=== PATIENT | female | born 1985 | race Caucasian/White ===

== ENCOUNTER → 2020-12-14 08:55 | Outpatient (BNVA) | payer OTHER, SELFPAY | PROVIDERS: Visit Provider Internal Medicine Rheumatology | DX: M05.79 Rheumatoid arthritis with rheumatoid factor of multiple sites without organ or systems involvement (principal); Z79.899 Other long term (current) drug therapy; M79.7 Fibromyalgia; Z11.1 Encounter for screening for respiratory tuberculosis; Z87.891 Personal history of nicotine dependence | CPT/HCPCS: 99214 ==

== ENCOUNTER 2020-12-14 10:25 | Outpatient (CLI) | payer OTHER, SELFPAY ==
[2020-12-14 11:20] LABS: Basophils % 0.2 %; Eosinophils # 0.1 10^3/uL (0.0-0.8); Eosinophils % 0.3 %; Hemoglobin 14.5 g/dL (11.5-15.3); Lymphocytes # 3.1 10^3/uL (0.8-4.8); Lymphocytes % 21.4 %; Mean Corpuscular HGB Conc 32.2 g/dL (30.0-36.0); Mean Corpuscular Hemoglobin 28.7 pg (28.0-34.0); Mean Corpuscular Volume 89.1 fL (81-99); Mean Platelet Volume 9.6 fL (7.4-10.4); Monocytes # 1.3 10^3/uL (0.2-0.9); Monocytes % 9.1 %; Neutrophils # 9.89 10^3/uL (1.8-7.7); Neutrophils % 68.5 %; Nucleated Red Blood Cells % 0 %; Platelet Count 335 10^3/cmm (130-400); Red Blood Count 5.05 10^6/uL (4.1-5.3); Red Cell Distribution Width 14.6 % (12.1-15.1); White Blood Count 14.4 10^3/uL (4.0-10.0)
[2020-12-14 11:41] LABS: Alanine Aminotransferase 7 U/L (0-33); Albumin Level 3.6 g/dL (3.5-5.2); Alkaline Phosphatase 87 IU/L (35-105); Aspartate Amino Transferase 9 U/L (0-32); C Reactive Protein 6.8 mg/L (0.0-4.9); Globulin 3.5 g/dL (1.3-4.6); Glomerular Filtration Rate 82.1 mL/min (90-130); Total Bilirubin 0.4 mg/dL (0.15-1.2); Total Protein 7.1 g/dL (6.6-8.7)
[2020-12-16 12:33] LABS: Quantiferon Nil 0.02 IU/mL; Quantiferon Plus TB2 <0.00 IU/mL; Quantiferon TB Gold NEGATIVE (NEGATIVE)
== END 2020-12-14 10:26 | disposition home or self-care (01) ==
LOC: LAB 10:27
PROVIDERS: Visit Provider Internal Medicine Rheumatology
DX: M06.9 Rheumatoid arthritis, unspecified (principal); Z79.899 Other long term (current) drug therapy; Z11.1 Encounter for screening for respiratory tuberculosis
CPT/HCPCS: 36415; 80076; 82565; 85025; 86140; 86480

== ENCOUNTER 2021-01-05 15:19 | Outpatient (CLI) | payer OTHER, SELFPAY ==
[2021-01-05 16:20] VITALS: BP 120/78; BP 135/97; PULSE 69; PULSE 70; RESP 16; TEMP 36.6; O2SAT 100; O2SAT 99
[2021-01-05] MEDS: acetaminophen 325 mg Tablet 650 MG PO (16:20)
[2021-01-05] MEDS: sodium chloride 0.9% 250 ML 30 ML IV (16:24)
[2021-01-05] MEDS: sodium chloride 0.9% (100 ml) 100 ML 400 ML (16:30)
[2021-01-05] MEDS: diphenhydrAMINE 50 mg/mL SDV 1mL 25 MG IVP (16:30)
== END 2021-01-05 15:20 | disposition home or self-care (01) ==
LOC: ONCMED 15:21
PROVIDERS: Visit Provider Internal Medicine Rheumatology
DX: M05.79 Rheumatoid arthritis with rheumatoid factor of multiple sites without organ or systems involvement (principal)
CPT/HCPCS: 96365; 96375; J1200; J1602; J2920; J7050

== ENCOUNTER 2021-02-02 15:29 | Outpatient (CLI) | payer OTHER, SELFPAY ==
[2021-02-02] MEDS: sodium chloride 0.9% 250 ML 30 ML IV (16:00)
[2021-02-02] MEDS: acetaminophen 325 mg Tablet 650 MG PO (16:00)
[2021-02-02] MEDS: diphenhydrAMINE 50 mg/mL SDV 1mL 25 MG IVP (16:02)
[2021-02-02 16:42] LABS: Basophils # 0.1 10^3/uL (0.0-0.1); Basophils % 0.4 %; Eosinophils # 0.1 10^3/uL (0.0-0.8); Hematocrit 41.6 % (37.0-47.0); Hemoglobin 13.4 g/dL (11.5-15.3); Lymphocytes # 4.3 10^3/uL (0.8-4.8); Lymphocytes % 30.8 %; Mean Corpuscular HGB Conc 32.2 g/dL (30.0-36.0); Mean Corpuscular Hemoglobin 29.1 pg (28.0-34.0); Mean Corpuscular Volume 90.4 fL (81-99); Mean Platelet Volume 9.7 fL (7.4-10.4); Monocytes # 1.1 10^3/uL (0.2-0.9); Monocytes % 7.6 %; Neutrophils # 8.37 10^3/uL (1.8-7.7); Neutrophils % 59.8 %; Nucleated Red Blood Cells % 0 %; Platelet Count 315 10^3/cmm (130-400); Red Cell Distribution Width 14.3 % (12.1-15.1)
[2021-02-02 17:46] LABS: Alanine Aminotransferase 10 U/L (0-33); Albumin Level 3.6 g/dL (3.5-5.2); Alkaline Phosphatase 87 IU/L (35-105); Aspartate Amino Transferase 9 U/L (0-32); Globulin 2.7 g/dL (1.3-4.6); Glomerular Filtration Rate 71.3 mL/min (90-130); Total Bilirubin 0.3 mg/dL (0.15-1.2); Total Protein 6.3 g/dL (6.6-8.7)
--- NOTE | 2021-03-15 08:12 | PC.NURSE ---
This patient had a visit on 01/05/21 for a Simponi infusion. The infusion was initiated at 1630 and completed at 1700. riltr
== END 2021-02-02 15:30 | disposition home or self-care (01) ==
PROVIDERS: Visit Provider Internal Medicine Rheumatology
DX: M05.79 Rheumatoid arthritis with rheumatoid factor of multiple sites without organ or systems involvement (principal)
CPT/HCPCS: 80076; 82565; 85025; 96365; 96375; J1200; J1602; J2920; J7050

== ENCOUNTER 2021-03-30 13:57 | Outpatient (CLI) | payer OTHER, SELFPAY ==
[2021-03-30] MEDS: acetaminophen 325 mg Tablet 650 MG PO (14:55)
[2021-03-30] MEDS: diphenhydrAMINE 50 mg/mL SDV 1mL 25 MG IVP (14:58)
[2021-03-30 15:02] LABS: Basophils # 0.1 10^3/uL (0.0-0.1); Basophils % 0.3 %; Eosinophils # 0.1 10^3/uL (0.0-0.8); Eosinophils % 0.5 %; Hematocrit 43.6 % (37.0-47.0); Hemoglobin 14.1 g/dL (11.5-15.3); Lymphocytes # 3.3 10^3/uL (0.8-4.8); Lymphocytes % 22.4 %; Mean Corpuscular HGB Conc 32.3 g/dL (30.0-36.0); Mean Corpuscular Hemoglobin 29.1 pg (28.0-34.0); Mean Corpuscular Volume 89.9 fL (81-99); Mean Platelet Volume 9.6 fL (7.4-10.4); Monocytes # 1.5 10^3/uL (0.2-0.9); Monocytes % 9.8 %; Neutrophils # 9.84 10^3/uL (1.8-7.7); Neutrophils % 66.6 %; Nucleated Red Blood Cells % 0 %; Platelet Count 328 10^3/cmm (130-400); Red Blood Count 4.85 10^6/uL (4.1-5.3); Red Cell Distribution Width 13.2 % (12.1-15.1); White Blood Count 14.8 10^3/uL (4.0-10.0)
[2021-03-30 15:43] LABS: Alanine Aminotransferase 7 U/L (0-33); Albumin Level 3.5 g/dL (3.5-5.2); Alkaline Phosphatase 84 IU/L (35-105); Aspartate Amino Transferase 9 U/L (0-32); Globulin 2.8 g/dL (1.3-4.6); Glomerular Filtration Rate 63.1 mL/min (90-130); Total Bilirubin 0.2 mg/dL (0.15-1.2); Total Protein 6.3 g/dL (6.6-8.7)
[2021-03-30 15:55] VITALS: BP 142/90; PULSE 85; RESP 18; TEMP 36.9; O2SAT 99
== END 2021-03-30 13:58 | disposition home or self-care (01) ==
PROVIDERS: Referring Provider Internal Medicine Rheumatology; Visit Provider Internal Medicine Rheumatology
DX: M05.79 Rheumatoid arthritis with rheumatoid factor of multiple sites without organ or systems involvement (principal)
CPT/HCPCS: 36415; 80076; 82565; 85025; 96365; 96375; J1200; J1602; J2920

== ENCOUNTER 2021-04-01 09:32 | Emergency (ER) | payer OTHER, SELFPAY ==
[2021-04-01 10:00] VITALS: BP 191/121; PULSE 72; RESP 15; TEMP 36.7; O2SAT 97; BMI 40.3
--- NOTE | 2021-04-01 10:28 | ECG_ITS ---
[facility] Test Date: 2021-04-01 Pat Name: Andie Joyce Department: Room: Gender: Female Appointment Coordinator: : 1985 Requested By: Merari Shepherd Order Number: [id number] Josef MD: Jose Carlos Garcia M.D. Measurements Intervals [place] Rate: 71 P: 56 MN: 133 QRS: 45 QRSD: 87 T: 6 QT: 387 QTc: 421 Interpretive Statements SINUS RHYTHM No previous ECG available for comparison Electronically Signed On 04-01-2021 20:29:50 CDT by Jose Carlos Garcia M.D. [id number] f
--- NOTE | 2021-04-01 10:28 | XR_ITS ---
WS: [id number] Portable AP upright chest, 04/01/2021 Clinical Data: chest pain Comparison: None. Findings: No nodules, masses or effusions are seen. The heart is normal. The pulmonary vascularity is not increased. No pneumonia or pneumothorax is seen. There are decorative items overlying the patien t's breasts. XR/XR chest 1V portable [id number] Impression: Negative chest.
--- NOTE | 2021-04-01 11:25 | CT_ITS ---
WS: [id number] CT HEAD TECHNIQUE: Noncontrast CT of the head obtained from the skullbase to the vertex. CLINICAL INFORMATION: dizzy; htn; shield abd; lmp 2 days ago COMPARISON: None. DLP: 886.[address] scans at [facility] use at least one of these dose optimization techniques: automat ed exposure control; mA and/or kV adjustment per patient size (includes targeted exams where dose is matched to clinical indication); or iterative reconstruction. FINDINGS: No evidence of intracranial hemorrhage or mass effect. Ventricular system and basal cisterns are hogan nt. No extra-axial fluid collections. No evidence of mass or mass effect. Normal burrell-white different iation. Incidental slightly low-lying cerebral tonsils. No hydrocephalus. Normal fourth ventricle. Paranasal sinuses and mastoid air cells are well aerated. .Normal visualized soft tissues. CT/CT head wo con* [id number] IMPRESSION: 1. No evidence of intracranial hemorrhage or mass effect. 2. Normal burrell-white differentiation. 3. Incidental cerebellar tonsillar ectopia. No hydrocephalus. Normal fourth ve ntricle. 4. No acute intracranial findings.
--- NOTE | 2021-04-01 11:26 | W.ED.DIZZY ---
HPI - Dizziness General: Chief Complaint: Dizziness Stated Complaint: High bp, Lightheaded, Nausea, tightness in chest Time Seen by Provider: 04/01/21 10:58 Source: patient Mode of arrival: ambulatory Limitations: no limitations History of Present Illness: HPI Narrative: Patient reportedly started having nausea yesterday with associated lightheadedness and chest tightness after autoimmune infusion on Monday for rheumatoid arthritis. She states this was her third infusion but first time she has had reaction to the infusion. She states she does occasionally get spikes in her blood pressure when she has a flare of her rheumatoid arthritis. She states she is on chronic prednisone and has been for approximately 7 years. She is presently not on any antihypertensive medications. She states she became hypotensive when taking lisinopril when she had a previous spike of hypertension. MD elicited complaint: dizziness, lightheadedness and disequilibrium Pertinent past history: other (Chronic prednisone use, rheumatoid arthritis) Timing: gradual onset Description: lightheadedness and off-balance Context: change in medication History of similar symptoms: Yes Exacerbating factors: other (Recent rheumatoid arthritis and fusion) Relieving factors: nothing Associated symptoms: Reports chest pain and nausea; Denies chills, headache(s), palpitations or vomiting Associated neuro symptoms: Deny confusion, difficulty speaking, dysphagia, diplopia, extremity weakness, facial numbness, facial weakness, gait changes, numbness in extremities or visual changes Review of Systems Const: Denies: fever(s) or chills Eyes: Denies: change in vision or blurry vision ENMT: Denies: throat pain Card: Reports: chest pain; Denies: palpitations Resp: Denies: dyspnea or wheezing GI: Reports: nausea; Denies: abdominal pain, vomiting or dysphagia : Denies: flank pain Musc: Denies: neck pain or back pain Skin/Breast: Denies: rash or pruritus Neuro: Reports: dizziness; Denies: headache(s), numbness in extremities or confusion Psych: Denies: anxiety Fritz/Lymph: Denies: enlarged lymph nodes PFSH ED PFSH: Medical History Chronic steroid use Depression with anxiety Endometriosis Fibromyalgia High risk medication use Hypertension Immunization counseling Joint pain Positive anti-CCP test Rheumatoid arthritis Seropositive rheumatoid arthritis of multiple sites Surgical History History of hand surgery Family History Other Cancer Chronic kidney disease (CKD) Diabetes Hypertension Lupus Rheumatoid arthritis Stroke Social History Smoking and tobacco status: former smoker Alcohol intake: current History of recent travel: No Female Reproductive History: Date of last menstrual period: 02/22/21 Physical Exam Const: COMMON NORMALS: no acute distress, patient oriented x3, no limitations and well nourished GENERAL APPEARANCE: cooperative HENMT: COMMON NORMALS: normocephalic, atraumatic, external ears normal, EAC's normal, TM's normal bilaterally and Normal external nose present HEAD & SCALP: normocephalic and atraumatic FACE & SINUS: normal facial exam NOSE: Normal external nose present EXTERNAL EAR: Yes external ears normal EXTERNAL AUDITORY CANAL: EAC's normal TYMPANIC MEMBRANE: TM's normal bilaterally MOUTH: Normal oral and palatal mucosa present Eye: COMMON NORMALS: EOMs intact bilaterally Neck/C-Spine: COMMON NORMALS: full ROM, no lymphadenopathy, supple and no meningeal signs GENERAL: Yes normal visual inspection Lymph: LYMPHATIC: no lymphadenopathy noted Chest: COMMONS NORMALS: normal inspection of the chest and normal palpation of entire chest wall CHEST: No Ecchymosis present and No rash Resp: COMMON NORMALS: normal respiratory effort, No retractions and clear to auscultation bilaterally EFFORT & INSPECTION: No respiratory distress AUSCULTATION: clear to auscultation bilaterally Cardio: COMMON NORMALS: regular rate, regular rhythm and Peripheral pulses 2+ throughout JUGULAR VENOUS DISTENTION: no JVD RATE: regular rate RHYTHM: regular rhythm PERIPHERAL PULSES: Peripheral pulses 2+ throughout GI: COMMON NORMALS: Normal to inspection, nondistended, normoactive bowel sounds present, non-tender and no masses (Obese) : COMMON NORMALS: Yes no CVA tenderness BLADDER/KIDNEY EXAM: Yes no CVA tenderness Back/Pelvis: COMMON NORMALS: no CVA tenderness Extremity: COMMON NORMALS: normal to inspection, full ROM and capillary refill normal Neuro: COMMON NORMALS: patient oriented x3, CN's II-XII intact bilaterally, no focal motor deficits, no sensory deficits noted and deep tendon reflexes 2+ bilaterally MENINGEAL SIGNS: Yes no meningeal signs Psych: COMMON NORMALS: mental status grossly normal and Normal thought process present THOUGHT PROCESS: Normal thought process present Skin: COMMON NORMALS: no rashes or lesions noted and no wounds GENERAL SKIN EXAM: no rashes or lesions noted Course Vital Signs: Vital signs: Vital Signs Temperature 98.0 F 04/01/21 10:00 Pulse Rate 84 04/01/21 13:57 Respiratory Rate 18 04/01/21 13:57 Blood Pressure 153/111 04/01/21 13:57 Pulse Oximetry 98 04/01/21 13:57 MDM - Dizziness Lab Data: Labs: Lab Results 04/01/21 04/01/21 04/01/21 Range/Units 11:38 11:38 11:38 WBC 11.6 H (4.0-10.0) 10^3/ uL RBC 4.97 (4.1-5.3) 10^6/u L Hgb 14.2 (11.5-15.3) g/dL Hct 44.6 (37.0-47.0) % MCV 89.7 (81-99) fL MCH 28.6 (28.0-34.0) pg MCHC 31.8 (30.0-36.0) g/dL RDW 13.2 (12.1-15.1) % Plt Count 301 (130-400) 10^3/c mm MPV 9.6 (7.4-10.4) fL Neut % (Auto) 55.3 % Lymph % (Auto) 35.2 % Bland % (Auto) 7.8 % Eos % (Auto) 1.0 % Baso % (Auto) 0.4 % Neut # (Auto) 6.40 (1.8-7.7) 10^3/u L Lymph # (Auto) 4.1 (0.8-4.8) 10^3/u L Bland # (Auto) 0.9 (0.2-0.9) 10^3/u L Eos # (Auto) 0.1 (0.0-0.8) 10^3/u L Baso # (Auto) 0.1 (0.0-0.1) 10^3/u L Nucleated RBC % (a uto) 0 % Nucleated RBCs # 0.0 /100WBC Sodium 141 (136-145) mmol/L Potassium 4.0 (3.5-5.1) mmol/L Chloride 101 (98-107) mmol/L Carbon Dioxide 29 (22-29) mmol/L Anion Gap 15.0 (5-19) BUN 14 (6-20) mg/dL Creatinine 0.9 (0.5-0.9) mg/dL GFR Calculation 71.3 L (90-130) mL/min Glucose 78 (65-115) mg/dL Calculated Osmolal ity 291 (285-295) mOsm/k g Calcium 8.4 L (8.5-10.5) mg/dL Total Bilirubin 0.4 (0.15-1.2) mg/dL AST 10 (0-32) U/L ALT 8 (0-33) U/L Alkaline Phosphata se 79 (35-105) IU/L Troponin T Baselin e 6 (0-10) ng/L Total Protein 6.1 L (6.6-8.7) g/dL Albumin 3.6 (3.5-5.2) g/dL Globulin 2.5 (1.3-4.6) g/dL TSH 1.69 (0.27-4.20) uIU/ mL HCG, Qual (Negative) Urine Color (Yellow) Urine Appearance (CLEAR) Urine pH (5-7) Ur Specific Gravit y (1.005-1.030) Urine Protein (Negative) Urine Glucose (UA) (Normal) Urine Ketones (Negative) Urine Blood (Negative) Urine Nitrate (Negative) Urine Bilirubin (Negative) Urine Urobilinogen (Negative) mg/dL Ur Leukocyte Whitney ase (Negative) 04/01/21 04/01/21 Range/Units 11:38 13:05 WBC (4.0-10.0) 10^3/ uL RBC (4.1-5.3) 10^6/u L Hgb (11.5-15.3) g/dL Hct (37.0-47.0) % MCV (81-99) fL MCH (28.0-34.0) pg MCHC (30.0-36.0) g/dL RDW (12.1-15.1) % Plt Count (130-400) 10^3/c mm MPV (7.4-10.4) fL Neut % (Auto) % Lymph % (Auto) % Bland % (Auto) % Eos % (Auto) % Baso % (Auto) % Neut # (Auto) (1.8-7.7) 10^3/u L Lymph # (Auto) (0.8-4.8) 10^3/u L Bland # (Auto) (0.2-0.9) 10^3/u L Eos # (Auto) (0.0-0.8) 10^3/u L Baso # (Auto) (0.0-0.1) 10^3/u L Nucleated RBC % (a uto) % Nucleated RBCs # /100WBC Sodium (136-145) mmol/L Potassium (3.5-5.1) mmol/L Chloride (98-107) mmol/L Carbon Dioxide (22-29) mmol/L Anion Gap (5-19) BUN (6-20) mg/dL Creatinine (0.5-0.9) mg/dL GFR Calculation (90-130) mL/min Glucose (65-115) mg/dL Calculated Osmolal ity (285-295) mOsm/k g Calcium (8.5-10.5) mg/dL Total Bilirubin (0.15-1.2) mg/dL AST (0-32) U/L ALT (0-33) U/L Alkaline Phosphata se (35-105) IU/L Troponin T Baselin e (0-10) ng/L Total Protein (6.6-8.7) g/dL Albumin (3.5-5.2) g/dL Globulin (1.3-4.6) g/dL TSH (0.27-4.20) uIU/ mL HCG, Qual Negative (Negative) Urine Color Yellow (Yellow) Urine Appearance Clear (CLEAR) Urine pH 6.5 (5-7) Ur Specific Gravit y 1.020 (1.005-1.030) Urine Protein Neg (Negative) Urine Glucose (UA) Norm (Normal) Urine Ketones Negative (Negative) Urine Blood Neg (Negative) Urine Nitrate Negative (Negative) Urine Bilirubin Neg (Negative) Urine Urobilinogen Norm (Negative) mg/dL Ur Leukocyte Whitney ase Negative (Negative) Imaging Data^: CT Head: Radiologist's impression: [place] [id number] [facility] [place], [place] [address]CZ Scan ReportSigned Patient: Armin Joyceit #: [id number]: 1985Acct#:[id number]/Sex: 36 / FADM Date: 04/01/21Loc: ERRoom/Bed:Attending Dr: Ordering Provider/Ordering MD: Smith Vogt MD Date of Service: 04/01/21 Procedure(s): CT head wo con* [id number] Accession Number(s): [id number] Report Number: [id number] WS: [id number] CT HEAD TECHNIQUE: Noncontrast CT of the head obtained from the skullbase to the vertex. CLINICAL INFORMATION: dizzy; htn; shield abd; lmp 2 days ago COMPARISON: None. DLP: 886.[address] scans at [facility] use at least one of these dose optimization techniques: automated exposure control; mA and/or kV adjustment per patient size (includes targeted exams where dose is matched to clinical indication); or iterative reconstruction. FINDINGS: No evidence of intracranial hemorrhage or mass effect. Ventricular system and basal cisterns are patent. No extra-axial fluid collections. No evidence of mass or mass effect. Normal burrell-white differentiation. Incidental slightly low-lying cerebral tonsils. No hydrocephalus. Normal fourth ventricle. Paranasal sinuses and mastoid air cells are well aerated. .Normal visualized soft tissues. CT/CT head wo con* [id number] IMPRESSION: 1. No evidence of intracranial hemorrhage or mass effect. 2. Normal burrell-white differentiation. 3. Incidental cerebellar tonsillar ectopia. No hydrocephalus. Normal fourth ventricle. 4. No acute intracranial findings. Dictated By:Yury Em MDSigned By:Yury Em MDSigned Date/Time:04/01/21 1220 CXR: Attestation: I personally reviewed and interpreted this imaging study as follows: My impression: negative chest Radiologist's impression: [address].[place], [place] [address]MMsf ReportSigned Patient: Leola Joyce #: [id number]: 1985Acct#:[id number]/Sex: 36 / FADM Date: 04/01/21Loc: ERRoom/Bed:Attending Dr: Ordering Provider/Ordering MD: Merari Shepherd Date of Service: 04/01/21 Procedure(s): XR chest 1V portable [id number] Accession Number(s): [id number] Report Number: [id number] WS: [id number] Portable AP upright chest, 04/01/2021 Clinical Data: chest pain Comparison: None. Findings: No nodules, masses or effusions are seen. The heart is normal. The pulmonary vascularity is not increased. No pneumonia or pneumothorax is seen. There are decorative items overlying the patient's breasts. XR/XR chest 1V portable [id number] Impression: Negative chest. Dictated By:Megan Mishra MDSigned By:Megan Mishra MDSigned Date/Time:04/01/21 1055 EKG Data^: EKG 1: EKG interpretation date: 04/01/21 EKG interpretation time: 10:10 Prior EKG tracings: not available for review Interpretation: Normal sinus rhythm with heart rate of 71. Normal P waves, normal T waves, normal axis. Normal QT interval. Normal QRS. Impression normal EKG. Discharge Plan Discharge Patient Disposition: Home Clinical Impression: Hypertensive urgency, Dizziness Condition: Stable Prescriptions: New losartan 50 mg tablet 50 mg PO DAILY Qty: 30 RF: 2 No Action ondansetron 4 mg tablet,disintegrating 4 mg PO Q6H RF: 0 gabapentin 100 mg capsule See Rx Instructions PO DAILY Qty: 60 RF: 2 ondansetron HCl 8 mg tablet 8 mg PO Q8H PRN (Reason: nausea and vomiting) Qty: 30 RF: 0 promethazine 12.5 mg tablet 12.5 mg PO Q6H PRN (Reason: nausea and vomiting) Qty: 60 RF: 1 prednisone 10 mg tablet 10 mg PO DAILY Qty: 90 RF: 1 omeprazole 40 mg capsule,delayed release(DR/EC) 40 mg PO DAILY Qty: 90 RF: 1 escitalopram oxalate 20 mg tablet 20 mg PO DAILY RF: 0 gabapentin 300 mg capsule 300 mg PO BEDTIME RF: 0 Discharge Orders: Discharge ED (Routine); Ordered 04/01/21 Ordered By: Smith Vogt Referrals: Isi Miller, RN [Primary Care Provider] - Discharge Diet: Low Salt Discharge Activity: Resume usual activity Patient Instructions: Heart Healthy Diet (ED), Low Sodium Diet (ED), Hypertension (ED), Dizziness (ED) Activity Restrictions/Additional Instructions: Avoid caffeine or any stimulants. Drink plenty of fluids but avoid added salt. Take losartan 50 mg daily to help control your blood pressure. If blood pressure improves you may cut the pill in half and take 25 mg daily for high blood pressure. Coding Level of Care Code ED Aircraft Mechanic Electrical And [employer] for Chg Fwd Exam Comprehensive
[2021-04-01] MEDS: meclizine 25 mg tablet PO (11:42)
[2021-04-01 11:44] LABS: Basophils # 0.1 10^3/uL (0.0-0.1); Basophils % 0.4 %; Eosinophils # 0.1 10^3/uL (0.0-0.8); Hematocrit 44.6 % (37.0-47.0); Hemoglobin 14.2 g/dL (11.5-15.3); Lymphocytes # 4.1 10^3/uL (0.8-4.8); Lymphocytes % 35.2 %; Mean Corpuscular HGB Conc 31.8 g/dL (30.0-36.0); Mean Corpuscular Hemoglobin 28.6 pg (28.0-34.0); Mean Corpuscular Volume 89.7 fL (81-99); Mean Platelet Volume 9.6 fL (7.4-10.4); Monocytes # 0.9 10^3/uL (0.2-0.9); Monocytes % 7.8 %; Neutrophils % 55.3 %; Nucleated Red Blood Cells % 0 %; Platelet Count 301 10^3/cmm (130-400); Red Blood Count 4.97 10^6/uL (4.1-5.3); Red Cell Distribution Width 13.2 % (12.1-15.1); White Blood Count 11.6 10^3/uL (4.0-10.0)
[2021-04-01 11:47] VITALS: BP 194/147; PULSE 61; O2SAT 99
[2021-04-01 11:52] LABS: HCG, Serum Qual Negative (Negative)
[2021-04-01] MEDS: hyDRALAzine 20 mg/mL INJ 1 mL 10 MG IVP (11:53)
[2021-04-01 12:14] LABS: Troponin(5th) Baseline 6 ng/L (0-10)
[2021-04-01 12:21] LABS: Alanine Aminotransferase 8 U/L (0-33); Albumin Level 3.6 g/dL (3.5-5.2); Alkaline Phosphatase 79 IU/L (35-105); Aspartate Amino Transferase 10 U/L (0-32); Blood Urea Nitrogen 14 mg/dL (6-20); Calcium 8.4 mg/dL (8.5-10.5); Carbon Dioxide 29 mmol/L (22-29); Chloride 101 mmol/L (98-107); Globulin 2.5 g/dL (1.3-4.6); Glomerular Filtration Rate 71.3 mL/min (90-130); Glucose 78 mg/dL (65-115); Osmolality Calculated 291 mOsm/kg (285-295); Sodium 141 mmol/L (136-145); Thyroid Stimulating Hormone 1.69 uIU/mL (0.27-4.20); Total Bilirubin 0.4 mg/dL (0.15-1.2); Total Protein 6.1 g/dL (6.6-8.7)
--- NOTE | 2021-04-01 12:28 | ECG_ITS ---
[facility] Test Date: 2021-04-01 Pat Name: Andie Joyce Department: Room: Gender: Female Needle Leader: : 1985 Requested By: Merari Shepherd Order Number: [id number] Josef MD: Jose Carlos Garcia M.D. Measurements Intervals [place] Rate: 54 P: 55 LA: 147 QRS: 42 QRSD: 86 T: 24 QT: 445 QTc: 425 Interpretive Statements SINUS BRADYCARDIA Compared to ECG 04/01/2021 10:07:25 Sinus rhythm no longer present Electronically Signed On 04-01-2021 20:37:59 CDT by Jose Carlos Garcia M.D. [email or web address] health willard [id number] f
--- NOTE | 2021-04-01 12:56 | PC.PHAR ---
PT STATES SHE TAKES AN INFUSION OF SYMPONIA ARIA (SP), THAT RUNS AT 30-45 MINUTES. SHE IS CHANGING TO ACETRANA (SP) STARTING IN 4 WEEKS. THE PT TOLD ME THIS, THERE WAS NO DOCUMENTATION FOR IT.
[2021-04-01 13:11] VITALS: BP 148/92; PULSE 64; RESP 18; O2SAT 96
[2021-04-01 13:15] LABS: Add Urine Microscopic? NO; Charge for UA Resulting for Rev
[2021-04-01 13:28] LABS: Glucose Urine UA Norm (Normal); Ketones Urine Negative (Negative); Protein Urine Neg (Negative); Urine Appearance Clear (CLEAR); Urine Color Yellow (Yellow); pH Urine 6.5 (5-7)
[2021-04-01 13:29] LABS: Bilirubin Urine Neg (Negative); Blood Urine Neg (Negative); Leukocyte Esterase Urine Negative (Negative); Nitrate Urine Negative (Negative); Urobilinogen Urine Norm (Negative)
[2021-04-01] MEDS: acetaminophen 500 mg Tablet 1000 MG PO (13:56)
[2021-04-01] MEDS: hyDRALAzine 20 mg/mL INJ 1 mL 5 MG IVP (13:56)
[2021-04-01 13:57] VITALS: BP 153/111; PULSE 84; RESP 18; O2SAT 98
[2021-04-01 14:26] VITALS: BP 145/102; PULSE 84; RESP 16
--- NOTE | 2021-04-01 14:39 | ED_ITS ---
HPI - Dizziness General: Chief Complaint: Dizziness Stated Complaint: High bp, Lightheaded, Nausea, tightness in chest Time Seen by Provider: 04/01/21 10:58 Source: patient Mode of arrival: ambulatory Limitations: no limitations History of Present Illness: Exacerbating factors: other (Recent rheumatoid arthritis and fusion) Relieving factors: nothing PFSH ED PFSH: Medical History Chronic steroid use Depression with anxiety Endometriosis Fibromyalgia High risk medication use Hypertension Immunization counseling Joint pain Positive anti-CCP test Rheumatoid arthritis Seropositive rheumatoid arthritis of multiple sites Surgical History History of hand surgery Family History Other Cancer Chronic kidney disease (CKD) Diabetes Hypertension Lupus Rheumatoid arthritis Stroke Social History Smoking and tobacco status: former smoker Alcohol intake: current History of recent travel: No Female Reproductive History: Date of last menstrual period: 02/22/21 Course Vital Signs: Vital signs: Vital Signs Temperature 98.0 F 04/01/21 10:00 Pulse Rate 84 04/01/21 14:26 Respiratory Rate 16 04/01/21 14:26 Blood Pressure 145/102 04/01/21 14:26 Pulse Oximetry 98 04/01/21 13:57 MDM - Dizziness Lab Data: Labs: Lab Results 04/01/21 04/01/21 04/01/21 Range/Units 11:38 11:38 11:38 WBC 11.6 H (4.0-10.0) 10^3/ uL RBC 4.97 (4.1-5.3) 10^6/u L Hgb 14.2 (11.5-15.3) g/dL Hct 44.6 (37.0-47.0) % MCV 89.7 (81-99) fL MCH 28.6 (28.0-34.0) pg MCHC 31.8 (30.0-36.0) g/dL RDW 13.2 (12.1-15.1) % Plt Count 301 (130-400) 10^3/c mm MPV 9.6 (7.4-10.4) fL Neut % (Auto) 55.3 % Lymph % (Auto) 35.2 % Elbert % (Auto) 7.8 % Eos % (Auto) 1.0 % Baso % (Auto) 0.4 % Neut # (Auto) 6.40 (1.8-7.7) 10^3/u L Lymph # (Auto) 4.1 (0.8-4.8) 10^3/u L Elbert # (Auto) 0.9 (0.2-0.9) 10^3/u L Eos # (Auto) 0.1 (0.0-0.8) 10^3/u L Baso # (Auto) 0.1 (0.0-0.1) 10^3/u L Nucleated RBC % (a uto) 0 % Nucleated RBCs # 0.0 /100WBC Sodium 141 (136-145) mmol/L Potassium 4.0 (3.5-5.1) mmol/L Chloride 101 (98-107) mmol/L Carbon Dioxide 29 (22-29) mmol/L Anion Gap 15.0 (5-19) BUN 14 (6-20) mg/dL Creatinine 0.9 (0.5-0.9) mg/dL GFR Calculation 71.3 L (90-130) mL/min Glucose 78 (65-115) mg/dL Calculated Osmolal ity 291 (285-295) mOsm/k g Calcium 8.4 L (8.5-10.5) mg/dL Total Bilirubin 0.4 (0.15-1.2) mg/dL AST 10 (0-32) U/L ALT 8 (0-33) U/L Alkaline Phosphata se 79 (35-105) IU/L Troponin T Baselin e 6 (0-10) ng/L Total Protein 6.1 L (6.6-8.7) g/dL Albumin 3.6 (3.5-5.2) g/dL Globulin 2.5 (1.3-4.6) g/dL TSH 1.69 (0.27-4.20) uIU/ mL HCG, Qual (Negative) Urine Color (Yellow) Urine Appearance (CLEAR) Urine pH (5-7) Ur Specific Gravit y (1.005-1.030) Urine Protein (Negative) Urine Glucose (UA) (Normal) Urine Ketones (Negative) Urine Blood (Negative) Urine Nitrate (Negative) Urine Bilirubin (Negative) Urine Urobilinogen (Negative) mg/dL Ur Leukocyte Whtiney ase (Negative) 04/01/21 04/01/21 Range/Units 11:38 13:05 WBC (4.0-10.0) 10^3/ uL RBC (4.1-5.3) 10^6/u L Hgb (11.5-15.3) g/dL Hct (37.0-47.0) % MCV (81-99) fL MCH (28.0-34.0) pg MCHC (30.0-36.0) g/dL RDW (12.1-15.1) % Plt Count (130-400) 10^3/c mm MPV (7.4-10.4) fL Neut % (Auto) % Lymph % (Auto) % Elbert % (Auto) % Eos % (Auto) % Baso % (Auto) % Neut # (Auto) (1.8-7.7) 10^3/u L Lymph # (Auto) (0.8-4.8) 10^3/u L Elbert # (Auto) (0.2-0.9) 10^3/u L Eos # (Auto) (0.0-0.8) 10^3/u L Baso # (Auto) (0.0-0.1) 10^3/u L Nucleated RBC % (a uto) % Nucleated RBCs # /100WBC Sodium (136-145) mmol/L Potassium (3.5-5.1) mmol/L Chloride (98-107) mmol/L Carbon Dioxide (22-29) mmol/L Anion Gap (5-19) BUN (6-20) mg/dL Creatinine (0.5-0.9) mg/dL GFR Calculation (90-130) mL/min Glucose (65-115) mg/dL Calculated Osmolal ity (285-295) mOsm/k g Calcium (8.5-10.5) mg/dL Total Bilirubin (0.15-1.2) mg/dL AST (0-32) U/L ALT (0-33) U/L Alkaline Phosphata se (35-105) IU/L Troponin T Baselin e (0-10) ng/L Total Protein (6.6-8.7) g/dL Albumin (3.5-5.2) g/dL Globulin (1.3-4.6) g/dL TSH (0.27-4.20) uIU/ mL HCG, Qual Negative (Negative) Urine Color Yellow (Yellow) Urine Appearance Clear (CLEAR) Urine pH 6.5 (5-7) Ur Specific Gravit y 1.020 (1.005-1.030) Urine Protein Neg (Negative) Urine Glucose (UA) Norm (Normal) Urine Ketones Negative (Negative) Urine Blood Neg (Negative) Urine Nitrate Negative (Negative) Urine Bilirubin Neg (Negative) Urine Urobilinogen Norm (Negative) mg/dL Ur Leukocyte Whitney ase Negative (Negative) EKG Data^: EKG 2: Attestation: I personally reviewed and interpreted this EKG as follows: EKG interpretation date: 04/01/21 EKG interpretation time: 12:40 Interpretation: EKG #2 showed sinus bradycardia with heart rate of 54. Normal EKG otherwise. Normal P wave, normal T wave, normal QRS. Normal ST segment. Normal axis. Essentially unchanged from previous EKG. Impression normal EKG except for sinus bradycardia. Discharge Plan Discharge Patient Disposition: Home Clinical Impression: Hypertensive urgency, Dizziness Condition: Stable Prescriptions: New losartan 50 mg tablet 50 mg PO DAILY Qty: 30 RF: 2 No Action ondansetron 4 mg tablet,disintegrating 4 mg PO Q6H RF: 0 gabapentin 100 mg capsule See Rx Instructions PO DAILY Qty: 60 RF: 2 ondansetron HCl 8 mg tablet 8 mg PO Q8H PRN (Reason: nausea and vomiting) Qty: 30 RF: 0 promethazine 12.5 mg tablet 12.5 mg PO Q6H PRN (Reason: nausea and vomiting) Qty: 60 RF: 1 prednisone 10 mg tablet 10 mg PO DAILY Qty: 90 RF: 1 omeprazole 40 mg capsule,delayed release(DR/EC) 40 mg PO DAILY Qty: 90 RF: 1 escitalopram oxalate 20 mg tablet 20 mg PO DAILY RF: 0 gabapentin 300 mg capsule 300 mg PO BEDTIME RF: 0 Discharge Orders: Discharge ED (Routine); Ordered 04/01/21 Ordered By: Smith Vogt Referrals: Paul,Isi, RN [Primary Care Provider] - Discharge Diet: Low Salt Discharge Activity: Resume usual activity Patient Instructions: Heart Healthy Diet (ED), Low Sodium Diet (ED), Hypertension (ED), Dizziness (ED) Activity Restrictions/Additional Instructions: Avoid caffeine or any stimulants. Drink plenty of fluids but avoid added salt. Take losartan 50 mg daily to help control your blood pressure. If blood pressure improves you may cut the pill in half and take 25 mg daily for high blood pressure. Coding Level of Care Code ED Song Writer for Emmanule Jacobo
== END 2021-04-01 14:28 | disposition home or self-care (01) ==
PROVIDERS: Physician Assistant; Emergency Provider Family Medicine
DX: R42 Dizziness and giddiness (principal); I16.0 Hypertensive urgency; I10 Essential (primary) hypertension; Z87.891 Personal history of nicotine dependence
CPT/HCPCS: 70450; 71045; 80053; 81003; 84443; 84484; 84703; 85025; 93005; 96374; 96376; 99284; J0360; J8597

== ENCOUNTER → 2021-07-21 15:54 | Outpatient (BNVA) | payer OTHER, SELFPAY | PROVIDERS: Visit Provider Internal Medicine Rheumatology | DX: M05.79 Rheumatoid arthritis with rheumatoid factor of multiple sites without organ or systems involvement (principal); Z79.899 Other long term (current) drug therapy; Z79.52 Long term (current) use of systemic steroids; M79.7 Fibromyalgia; Z71.89 Other specified counseling; Z87.891 Personal history of nicotine dependence | CPT/HCPCS: 99214 ==

== ENCOUNTER 2021-09-14 13:22 | Outpatient (CLI) | payer OTHER, SELFPAY ==
--- NOTE | 2021-09-14 13:30 | XR_ITS ---
WS: [email or web address] HAND RIGHT TECHNIQUE: 3 views of the right hand CLINICAL INFORMATION: Z79.899 - Other [facility] (current) drug therapy COMPARISON: None. FINDINGS: Normal metacarpals. Normal MCP joint. Metacarpal heads are normal in appearance. Normal PIP and DIP j oints. No evidence of acute fracture or dislocation. No significant erosive changes. Radiocarpal joint: Mild narrowing Carpal bones: Normal. XR/XR hand RT min 3V* [id number] IMPRESSION: No significant erosive changes.
--- NOTE | 2021-09-14 13:30 | XR_ITS ---
WS: [email or web address] FOOT LEFT TECHNIQUE: 3 views of the left foot CLINICAL INFORMATION: Z79.899 - Other snf (current) drug therapy COMPARISON: None. FINDINGS: No evidence of acute fracture or dislocation. Normal tarsal metatarsal alignment. Normal calcaneus. N ormal visualized talar dome. Moderate diffuse soft tissue edema lower leg and hindfoot. Normal tarsal metatarsal alignment. No significant periarticular erosions. XR/XR foot LT min 3V* [id number] IMPRESSION: No significant erosive changes.
--- NOTE | 2021-09-14 13:30 | XR_ITS ---
WS: [email or web address] HAND LEFT TECHNIQUE: 3 views of the left hand CLINICAL INFORMATION: Z79.899 - Other watermelon inspector (current) drug therapy COMPARISON: None. FINDINGS: Normal metacarpals. Normal MCP joint. Metacarpal heads are normal in appearance. Normal PIP and DIP j oints. No evidence of acute fracture or dislocation. No significant erosions. Radiocarpal joint: Mild narrowing Carpal bones: Normal. XR/XR hand LT min 3V* [id number] IMPRESSION: No significant erosive changes.
--- NOTE | 2021-09-14 13:30 | XR_ITS ---
WS: [id number] FOOT RIGHT TECHNIQUE: 3 views of the right foot CLINICAL INFORMATION: Z79.899 - Other shelter (current) drug therapy COMPARISON: None. FINDINGS: No evidence of acute fracture or dislocation. Normal tarsal metatarsal alignment. Normal calcaneus. N ormal visualized talar dome. Diffuse moderate soft tissue edema involving the lower leg and hindfoot. Moderate narrowing involving the TMT joints. Normal metatarsals. No significant articular erosions. Mild pes planus. XR/XR foot RT min 3V* [id number] IMPRESSION: No significant erosive changes
[2021-09-14 14:12] LABS: Basophils % 0.4 %; Eosinophils # 0.1 10^3/uL (0.0-0.8); Eosinophils % 0.8 %; Hematocrit 45.2 % (37.0-47.0); Lymphocytes # 2.4 10^3/uL (0.8-4.8); Lymphocytes % 32.8 %; Mean Corpuscular HGB Conc 33.2 g/dL (30.0-36.0); Mean Corpuscular Hemoglobin 29.4 pg (28.0-34.0); Mean Corpuscular Volume 88.6 fl (81-99); Monocytes # 0.5 10^3/uL (0.2-0.9); Monocytes % 6.7 %; Neutrophils # 4.32 10^3/uL (1.8-7.7); Neutrophils % 59.2 %; Nucleated Red Blood Cells % 0 %; Platelet Count 205 10^3/cmm (130-400); Red Cell Distribution Width 16.5 % (12.1-15.1); White Blood Count 7.3 10^3/uL (4.0-10.0)
[2021-09-14 14:26] LABS: Alanine Aminotransferase 76 U/L (0-33); Albumin Level 4.3 g/dL (3.5-5.2); Alkaline Phosphatase 76 IU/L (35-105); Aspartate Amino Transferase 39 U/L (0-32); C Reactive Protein 0.3 mg/L (0.0-4.9); Globulin 2.5 g/dL (1.3-4.6); Glomerular Filtration Rate 63.1 mL/min (90-130); Total Bilirubin 0.9 mg/dL (0.15-1.2); Total Protein 6.8 g/dL (6.6-8.7)
== END 2021-09-14 13:23 | disposition home or self-care (01) ==
LOC: RAD 13:27
PROVIDERS: Visit Provider Internal Medicine Rheumatology
DX: M05.79 Rheumatoid arthritis with rheumatoid factor of multiple sites without organ or systems involvement (principal); Z79.899 Other long term (current) drug therapy
CPT/HCPCS: 36415; 73130; 73630; 80076; 82565; 85025; 86140

== ENCOUNTER 2021-11-03 12:58 | Outpatient (CLI) | payer OTHER, SELFPAY ==
--- NOTE | 2021-11-03 13:10 | XR_ITS ---
WS: [id number] XR chest 2V* [id number] REASON FOR EXAM: Z79.899 - Other [place] [facility]current[facility] drug therapy FINDINGS: Chest is unchanged compared to 04/01/2021. The heart and mediastinum are within normal limits. Calcified granulomatous disease in both hemithoraces. No acute pulmonary parenchymal or pleural abnormality. Mild scoliosis of the thoracic spine convex left. XR/XR chest 2V* [id number] IMPRESSION: No acute chest abnormality.
[2021-11-03 14:06] LABS: Basophils # 0.1 10^3/uL (0.0-0.1); Basophils % 0.5 %; Eosinophils # 0.3 10^3/uL (0.0-0.8); Eosinophils % 2.6 %; Hematocrit 43.7 % (37.0-47.0); Hemoglobin 14.6 g/dL (11.5-15.3); Lymphocytes # 2.2 10^3/uL (0.8-4.8); Lymphocytes % 21.3 %; Mean Corpuscular HGB Conc 33.4 g/dL (30.0-36.0); Mean Corpuscular Hemoglobin 30.1 pg (28.0-34.0); Mean Corpuscular Volume 90.1 fl (81-99); Monocytes # 1.1 10^3/uL (0.2-0.9); Monocytes % 10.7 %; Neutrophils # 6.61 10^3/uL (1.8-7.7); Neutrophils % 64.6 %; Nucleated Red Blood Cells % 0 %; Platelet Count 180 10^3/cmm (130-400); Red Blood Count 4.85 10^6/uL (4.1-5.3); Red Cell Distribution Width 13.8 % (12.1-15.1); White Blood Count 10.2 10^3/uL (4.0-10.0)
[2021-11-03 14:36] LABS: Alanine Aminotransferase 36 U/L (0-33); Albumin Level 3.9 g/dL (3.5-5.2); Alkaline Phosphatase 85 IU/L (35-105); Aspartate Amino Transferase 32 U/L (0-32); C Reactive Protein 0.4 mg/L (0.0-4.9); Globulin 2.3 g/dL (1.3-4.6); Glomerular Filtration Rate 81.6 mL/min (90-130); Total Bilirubin 0.4 mg/dL (0.15-1.2); Total Protein 6.2 g/dL (6.6-8.7)
== END 2021-11-03 12:59 | disposition home or self-care (01) ==
PROVIDERS: Visit Provider Internal Medicine Rheumatology
DX: M05.79 Rheumatoid arthritis with rheumatoid factor of multiple sites without organ or systems involvement (principal); R06.02 Shortness of breath; Z79.899 Other long term (current) drug therapy
CPT/HCPCS: 36415; 71046; 80076; 82565; 85025; 86140

== ENCOUNTER 2022-03-08 08:40 | Outpatient (CLI) | payer BC, SELFPAY ==
[2022-03-08] VITALS (9 sets, daily range): BP systolic 142–173; BP diastolic 79–109; PULSE 74–97; RESP 18; TEMP 36.1–37.2; O2SAT 95–97
--- NOTE | 2022-03-08 09:12 | PC.PHAR ---
SPOKE WITH NURSE REA REGARDING PATIENT'S RITUXAN INFUSION. OK TO USE THE BIOSIMILAR TRUXIMA WHICH IS INDICATED FOR THIS PATIENT. ALSO CONFIRMED THAT PATIENT IS BUY AND BILL. REA STATES HER PAPERWORK STATES NO PA REQUIRED, BUY AND BILL AVAILABLE.
[2022-03-08 09:15] LABS: Basophils % 0.4 %; Eosinophils # 0.1 10^3/uL (0.0-0.8); Eosinophils % 1.3 %; Hematocrit 42.7 % (37.0-47.0); Hemoglobin 14.4 g/dL (11.5-15.3); Lymphocytes # 2.3 10^3/uL (0.8-4.8); Lymphocytes % 22.6 %; Mean Corpuscular HGB Conc 33.7 g/dL (30.0-36.0); Mean Corpuscular Hemoglobin 28.9 pg (28.0-34.0); Mean Corpuscular Volume 85.7 fl (81-99); Mean Platelet Volume 9.7 fL (7.4-10.4); Monocytes # 0.8 10^3/uL (0.2-0.9); Monocytes % 8.1 %; Neutrophils # 6.79 10^3/uL (1.8-7.7); Neutrophils % 67.4 %; Nucleated Red Blood Cells % 0 %; Platelet Count 293 10^3/cmm (130-400); Red Blood Count 4.98 10^6/uL (4.1-5.3); Red Cell Distribution Width 12.9 % (12.1-15.1); White Blood Count 10.1 10^3/uL (4.0-10.0)
[2022-03-08] MEDS: sodium chloride 0.9% 250 ML 50 ML IV (09:26)
[2022-03-08] MEDS: acetaminophen 325 mg Tablet 650 MG PO (09:27)
[2022-03-08] MEDS: diphenhydrAMINE 50 mg/mL SDV 1mL IVP (09:29)
[2022-03-08 09:30] LABS: Alanine Aminotransferase 10 U/L (0-33); Albumin Level 3.8 g/dL (3.5-5.2); Alkaline Phosphatase 88 IU/L (35-105); Aspartate Amino Transferase 13 U/L (0-32); Globulin 2.9 g/dL (1.3-4.6); Glomerular Filtration Rate 70.8 mL/min (90-130); Total Bilirubin 0.5 mg/dL (0.15-1.2); Total Protein 6.7 g/dL (6.6-8.7)
[2022-03-08 09:31] LABS: Erythrocyte Sedimentation Rate 41 mm/hr (0-15)
== END 2022-03-08 08:41 | disposition home or self-care (01) ==
LOC: ONCMED 08:41
PROVIDERS: Referring Provider Internal Medicine Rheumatology; Visit Provider Internal Medicine Rheumatology
DX: M06.9 Rheumatoid arthritis, unspecified (principal); Z79.899 Other long term (current) drug therapy
CPT/HCPCS: 80076; 82565; 85025; 85651; 96365; 96366; 96375; J1200; J2930; J7050; Q5115

== ENCOUNTER 2022-03-22 00:49 | Emergency (ER) | payer BC, SELFPAY ==
[2022-03-22 01:17] VITALS: BMI 46.0
[2022-03-22 01:19] VITALS: BP 174/127; PULSE 110; RESP 16; TEMP 37.1; O2SAT 98
--- NOTE | 2022-03-22 01:22 | XRR_ITS ---
PROCEDURE INFORMATION: Exam: XR Chest Exam date and time: 03/22/2022 2:14 AM Age: 37 years old Clinical indication: Shortness of breath; Patient HX: SOB with nausea and back pain after testing positive for covid. TECHNIQUE: Imaging protocol: Radiologic exam of the chest. Views: 1 view. COMPARISON: CR XR chest 2V* [id number] 11/03/2021 1:13 PM FINDINGS: Lungs: Unremarkable. No consolidation. Pleural spaces: Unremarkable. No pleural effusion. No pneumothorax. Heart/Mediastinum: Unremarkable. No cardiomegaly. Bones/joints: Unremarkable. XR/XR chest 1V portable [id number] IMPRESSION: No acute findings.
--- NOTE | 2022-03-22 01:53 | ECG_ITS ---
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 Measurements Intervals [place] Rate: 98 P: 40 [place]: 145 QRS: 43 QRSD: 82 T: 31 QT: 361 QTc: 462 Interpretive Statements SINUS RHYTHM Compared to ECG 04/01/2021 12:35:06 Sinus bradycardia no longer present Electronically Signed On 03-22-2022 22:25:43 CDT by Wilfrid Wise M.D. [email or web address] [email or web address] [id number]
--- NOTE | 2022-03-22 01:54 | W.ED.SOB ---
HPI - SOB/Dyspnea General: Chief Complaint: Shortness of Breath/Dyspnea Stated Complaint: PT says she is Covid positive Time Seen by Provider: 03/22/22 01:24 Source: patient Mode of arrival: ambulatory Limitations: no limitations History of Present Illness: HPI Narrative: 37-year-old female has a history of rheumatoid arthritis states that she was diagnosed with COVID on . States she has been having sharp chest pains mainly on the right side increasing dyspnea along with shortness of breath. Patient is in no distress here. Denies any fever denies any worsening improving factors denies any vomiting or diarrhea. Associated symptoms: Reports chest pain; Deny abdominal pain, fever(s), nausea or vomiting Review of Systems Const: Denies: fever(s), chills, body aches or change in appetite Eyes: Denies: blurry vision or eye discomfort ENMT: Denies: throat pain or dental pain Card: Reports: chest pain Resp: Reports: dyspnea and non-productive cough GI: Denies: abdominal pain, nausea, vomiting or diarrhea : Denies: dysuria Musc: Denies: neck pain or back pain Skin/Breast: Denies: rash Neuro: Denies: headache(s) Psych: Denies: depression Fritz/Lymph: Denies: easy bruising All/Imm: Denies: urticaria PFSH ED PFSH: Medical History Chronic steroid use Depression with anxiety Endometriosis Fibromyalgia High risk medication use Hypertension Immunization counseling Joint pain Positive anti-CCP test Rheumatoid arthritis Seropositive rheumatoid arthritis of multiple sites Surgical History History of hand surgery Family History Other Cancer Chronic kidney disease (CKD) Diabetes Hypertension Lupus Rheumatoid arthritis Stroke Social History Smoking and tobacco status: former smoker Alcohol intake: current History of recent travel: No Female Reproductive History: Date of last menstrual period: 02/22/21 Physical Exam Const: COMMON NORMALS: no acute distress, patient oriented x3 and healthy appearing HENMT: COMMON NORMALS: normocephalic and atraumatic HEAD & SCALP: normocephalic and atraumatic Eye: COMMON NORMALS: Equal, round and reactive pupils present and EOMs intact bilaterally PUPIL: Yes Equal, round and reactive pupils present Neck/C-Spine: COMMON NORMALS: full ROM and supple Chest: COMMONS NORMALS: normal inspection of the chest and normal palpation of entire chest wall Resp: COMMON NORMALS: normal respiratory effort, No retractions, No use of accessory muscles and clear to auscultation bilaterally AUSCULTATION: clear to auscultation bilaterally Cardio: COMMON NORMALS: regular rhythm and No murmurs present (Cardio) RATE: tachycardic RHYTHM: regular rhythm GI: COMMON NORMALS: Normal to inspection, nondistended, normoactive bowel sounds present, Soft to palpation, non-tender and no masses PALPATION: Yes Soft to palpation Extremity: COMMON NORMALS: normal to inspection and full ROM Neuro: COMMON NORMALS: patient oriented x3, moves all extremities and no focal motor deficits Psych: COMMON NORMALS: mental status grossly normal, Normal thought process present and cooperative THOUGHT PROCESS: Normal thought process present Skin: COMMON NORMALS: no rashes or lesions noted and no wounds GENERAL SKIN EXAM: no rashes or lesions noted Course Vital Signs: Vital signs: Vital Signs Temperature 98.8 F 03/22/22 01:19 Pulse Rate 98 03/22/22 04:00 Respiratory Rate 18 03/22/22 04:00 Blood Pressure 165/119 03/22/22 04:00 Pulse Oximetry 100 03/22/22 04:00 MDM - SOB/Dyspnea Medical Decision Making Patient presents for chest pain along with shortness of breath recently had COVID. Her D-dimer was positive CT scan showed no signs of pulmonary embolism. She is in no distress here troponin other blood work is normal as well she is stable for discharge is to follow-up with PCP and return if worsening Lab Data : 03/22/22 02:25 03/22/22 02:25 Labs/Radiology: Radiology Impressions Chest X-Ray 03/22/22 01:22 IMPRESSION: No acute findings. Chest CTA 03/22/22 02:56 IMPRESSION: No pulmonary embolus or aortic dissection. Laboratory Results WBC 9.8 10^3/uL (4.0-10.0) 03/22/22 02:25 RBC 4.94 10^6/uL (4.1-5.3) 03/22/22 02:25 Hgb 14.3 g/dL (11.5-15.3) 03/22/22 02:25 Hct 41.4 % (37.0-47.0) 03/22/22 02:25 MCV 83.8 fl (81-99) 03/22/22 02:25 MCH 28.9 pg (28.0-34.0) 03/22/22 02:25 MCHC 34.5 g/dL (30.0-36.0) 03/22/22 02:25 RDW 13.0 % (12.1-15.1) 03/22/22 02:25 Plt Count 324 10^3/cmm (130-400) 03/22/22 02:25 MPV 9.8 fL (7.4-10.4) 03/22/22 02:25 Neut % (Auto) 67.1 % 03/22/22 02:25 Lymph % (Auto) 21.0 % 03/22/22 02:25 [place] % (Auto) 10.3 % 03/22/22 02:25 Eos % (Auto) 1.0 % 03/22/22 02:25 Baso % (Auto) 0.3 % 03/22/22 02:25 Neut # (Auto) 6.54 10^3/uL (1.8-7.7) 03/22/22 02:25 Lymph # (Auto) 2.1 10^3/uL (0.8-4.8) 03/22/22 02:25 [place] # (Auto) 1.0 10^3/uL (0.2-0.9) H 03/22/22 02:25 Eos # (Auto) 0.1 10^3/uL (0.0-0.8) 03/22/22 02:25 Baso # (Auto) 0.0 10^3/uL (0.0-0.1) 03/22/22 02:25 Nucleated RBC % (auto) 0 % 03/22/22 02:25 Nucleated RBCs # 0.0 /100WBC 03/22/22 02:25 D-Dimer 1.83 ug/mIFEU (0-0.59) H 03/22/22 02:25 Sodium 138 mmol/L (136-145) 03/22/22 02:25 Potassium 3.5 mmol/L (3.5-5.1) 03/22/22 02:25 Chloride 102 mmol/L (98-107) 03/22/22 02:25 Carbon Dioxide 26 mmol/L (22-29) 03/22/22 02:25 Anion Gap 13.5 (5-19) 03/22/22 02:25 BUN 7 mg/dL (6-20) 03/22/22 02:25 Creatinine 0.8 mg/dL (0.5-0.9) 03/22/22 02:25 GFR Calculation 81.2 mL/min (90-130) L 03/22/22 02:25 Glucose 92 mg/dL (65-115) 03/22/22 02:25 Calculated Osmolality 284 mOsm/kg (285-295) L 03/22/22 02:25 Calcium 8.5 mg/dL (8.5-10.5) 03/22/22 02:25 Total Bilirubin 0.5 mg/dL (0.15-1.2) 03/22/22 02:25 AST 14 U/L (0-32) 03/22/22 02:25 ALT 12 U/L (0-33) 03/22/22 02:25 Alkaline Phosphatase 88 IU/L (35-105) 03/22/22 02:25 Troponin T Baseline 6 ng/L (0-10) 03/22/22 02:25 NT-Pro-B Natriuret Pep 101 pg/mL (0-125) 03/22/22 02:25 Total Protein 7.1 g/dL (6.6-8.7) 03/22/22 02:25 Albumin 3.8 g/dL (3.5-5.2) 03/22/22 02:25 Globulin 3.3 g/dL (1.3-4.6) 03/22/22 02:25 EKG Data EKG 1: I personally reviewed and interpreted this EKG as follows: EKG Interpretation Date: 03/22/22 EKG interpretation time: 02:20 Interpretation: nsr hr [address] or t wave abnormalities qrs 82 qtc 416 Discharge Plan Discharge Patient Disposition: Home Clinical Impression: Shortness of breath, COVID-19 Condition: Stable Prescriptions: No Action gabapentin 300 mg capsule 300 mg PO BEDTIME Qty: 30 3RF gabapentin 100 mg capsule See Rx Instructions .ROUTE .COMPLEX Qty: 60 3RF Dose Instruction: TAKE 1 TO 2 CAPSULES BY MOUTH IN THE MORNING DIRECTED BY PHYSICIAN IN ADDITION TO THE 300 MG TAKEN AT BEDTIME Rx Instructions: TAKE 1 TO 2 CAPSULES BY MOUTH IN THE MORNING DIRECTED BY PHYSICIAN IN ADDITION TO THE 300 MG TAKEN AT BEDTIME omeprazole 40 mg capsule,delayed release(DR/EC) 40 mg PO DAILY Qty: 90 1RF prednisone 2.5 mg tablet 2.5 mg PO DAILY Qty: 90 1RF hydrocodone-acetaminophen 5-325 mg tablet 1 tab PO Q6H PRN (Reason: pain (scale score 7-10)) 7 Days Qty: 28 0RF promethazine 12.5 mg tablet 12.5 mg PO Q6H PRN (Reason: nausea and vomiting) Qty: 30 1RF Actemra ACTPen 162 mg/0.9 mL pen injector 162 mg SUBCUT .Q7days Qty: 4 3RF hydrocodone-acetaminophen 5-325 mg tablet 1 tab PO Q6H PRN (Reason: pain (scale score 7-10)) 30 Days Qty: 120 0RF cyclobenzaprine 10 mg tablet 10 mg PO .Q8-12hours PRN (Reason: muscle spasm) Qty: 30 1RF escitalopram oxalate 20 mg tablet 20 mg PO DAILY 0RF losartan 50 mg tablet 50 mg PO DAILY Qty: 30 2RF Rx Instructions: For high blood pressure Discharge Orders: Discharge ED (Routine); Ordered 03/22/22 Ordered By: Amber Williamson Referrals: Isi Miller RN [Primary Care Provider] - 1-3 days Discharge Diet: Advance as tolerated Discharge Activity: Resume usual activity Patient Instructions: Dyspnea (ED) Coding Level of Care Code ED Matcher Offbearer for Chg Fwd Exam Comprehensive
[2022-03-22 02:30] LABS: Basophils % 0.3 %; Eosinophils # 0.1 10^3/uL (0.0-0.8); Hematocrit 41.4 % (37.0-47.0); Hemoglobin 14.3 g/dL (11.5-15.3); Lymphocytes # 2.1 10^3/uL (0.8-4.8); Mean Corpuscular HGB Conc 34.5 g/dL (30.0-36.0); Mean Corpuscular Hemoglobin 28.9 pg (28.0-34.0); Mean Corpuscular Volume 83.8 fl (81-99); Mean Platelet Volume 9.8 fL (7.4-10.4); Monocytes % 10.3 %; Neutrophils # 6.54 10^3/uL (1.8-7.7); Neutrophils % 67.1 %; Nucleated Red Blood Cells % 0 %; Platelet Count 324 10^3/cmm (130-400); Red Blood Count 4.94 10^6/uL (4.1-5.3); White Blood Count 9.8 10^3/uL (4.0-10.0)
[2022-03-22 02:49] LABS: Troponin(5th) Baseline 6 ng/L (0-10)
[2022-03-22 02:51] LABS: D Dimer 1.83 ug/mIFEU (0-0.59)
[2022-03-22 02:56] LABS: Alanine Aminotransferase 12 U/L (0-33); Albumin Level 3.8 g/dL (3.5-5.2); Alkaline Phosphatase 88 IU/L (35-105); Anion Gap 13.5 (5-19); Aspartate Amino Transferase 14 U/L (0-32); Blood Urea Nitrogen 7 mg/dL (6-20); Calcium 8.5 mg/dL (8.5-10.5); Carbon Dioxide 26 mmol/L (22-29); Chloride 102 mmol/L (98-107); Globulin 3.3 g/dL (1.3-4.6); Glomerular Filtration Rate 81.2 mL/min (90-130); Glucose 92 mg/dL (65-115); NT Pro B Type Natriuretic Pept 101 pg/mL (0-125); Osmolality Calculated 284 mOsm/kg (285-295); Potassium 3.5 mmol/L (3.5-5.1); Sodium 138 mmol/L (136-145); Total Bilirubin 0.5 mg/dL (0.15-1.2); Total Protein 7.1 g/dL (6.6-8.7)
--- NOTE | 2022-03-22 02:56 | CTR_ITS ---
PROCEDURE INFORMATION: Exam: CTA Chest With Contrast Exam date and time: 03/22/2022 4:04 AM Age: 37 years old Clinical indication: Shortness of breath; Additional info: SOB TECHNIQUE: Imaging protocol: Computed tomographic angiography of the chest with contrast. 3D rendering (Not supervised by radiologist): MIP and/or 3D reconstructed images were created by the technologist. Radiation optimization: All CT scans at this facility use at least one of these dose optimization techniques: automated exposure control; mA and/or kV adjustment per patient size (includes targeted exams where dose is matched to clinical indication); or iterative reconstruction. Contrast material: OMNI 350; Contrast volume: 100 ml; Contrast route: INTRAVENOUS (IV); COMPARISON: CR (CHEST, ) 03/22/2022 2:14 AM RADIATION DOSE METRICS: Total DLP (mGy-cm): 546.66 FINDINGS: Pulmonary arteries: No pulmonary embolus or aortic dissection. Great vessels off aortic arch: Normal variant common origin of the left common carotid artery and innominate artery consistent with bovine arch. Aorta: See Pulmonary arteries finding. Lungs: Unremarkable. No consolidation. No masses. Pleural spaces: Unremarkable. No pneumothorax. No pleural effusion. Heart: Unremarkable. No cardiomegaly. No pericardial effusion. Lymph nodes: Unremarkable. No enlarged lymph nodes. Bones/joints: S shaped scoliosis in the upper and midthoracic spine. Soft tissues: Unremarkable. CT/CT angio chest PE protcl [id number] IMPRESSION: No pulmonary embolus or aortic dissection.
--- NOTE | 2022-03-22 03:53 | ECG_ITS ---
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 Measurements Intervals [place] Rate: 96 P: 55 [place]: 150 QRS: 48 QRSD: 87 T: 35 QT: 371 QTc: 471 Interpretive Statements SINUS RHYTHM Compared to ECG 03/22/2022 02:20:08 No significant changes Electronically Signed On 03-22-2022 22:32:41 CDT by Wilfrid Wise M.D. [email or web address] fre[facility], memorial campusPoptank Studios/store/OM/[id number]
[2022-03-22 04:00] VITALS: BP 165/119; PULSE 98; RESP 18; O2SAT 100
[2022-03-22] MEDS: iohexol 350 mg/mL 100 mL Btl IV (04:11)
== END 2022-03-22 04:29 | disposition home or self-care (01) ==
PROVIDERS: Emergency Provider Emergency Medicine
DX: U07.1 COVID-19 (principal); I10 Essential (primary) hypertension; Z87.891 Personal history of nicotine dependence
CPT/HCPCS: 71045; 71275; 80053; 83880; 84484; 85025; 85378; 93005; 99285; Q9967

== ENCOUNTER 2022-04-11 07:42 | Outpatient (CLI) | payer BC, SELFPAY ==
[2022-04-11 07:59] VITALS: BP 152/98; PULSE 101; RESP 18; TEMP 36.9; O2SAT 97
[2022-04-11] MEDS: sodium chloride 0.9% 250 ML 50 ML IV (09:28)
[2022-04-11] MEDS: acetaminophen 325 mg Tablet 650 MG PO (09:29)
[2022-04-11] MEDS: diphenhydrAMINE 50 mg/mL SDV 1mL IVP (09:30)
[2022-04-11 10:30] VITALS: BP 152/97; PULSE 82; RESP 18; TEMP 37.7; O2SAT 97
[2022-04-11 11:17] VITALS: BP 134/92; PULSE 87; RESP 18; TEMP 37.4; O2SAT 97
[2022-04-11 13:06] VITALS: BP 162/99; PULSE 97; RESP 18; TEMP 36.5; O2SAT 98
== END 2022-04-11 07:43 | disposition home or self-care (01) ==
PROVIDERS: Referring Provider Internal Medicine Rheumatology; Visit Provider Internal Medicine Rheumatology
DX: M06.9 Rheumatoid arthritis, unspecified (principal)
CPT/HCPCS: 96365; 96366; 96375; J1200; J2930; J7050; Q5115

== ENCOUNTER 2022-08-31 07:51 | Outpatient (CLI) | payer BC, SELFPAY ==
[2022-08-31 08:32] VITALS: BP 157/116; PULSE 99; RESP 18; TEMP 36.5
[2022-08-31 08:33] LABS: Basophils % 0.3 %; Eosinophils # 0.2 10^3/uL (0.0-0.8); Eosinophils % 1.8 %; Hematocrit 41.5 % (37.0-47.0); Hemoglobin 13.4 g/dL (11.5-15.3); Lymphocytes # 2.4 10^3/uL (0.8-4.8); Lymphocytes % 18.8 %; Mean Corpuscular HGB Conc 32.3 g/dL (30.0-36.0); Mean Corpuscular Hemoglobin 27.6 pg (28.0-34.0); Mean Corpuscular Volume 85.4 fl (81-99); Mean Platelet Volume 9.6 fL (7.4-10.4); Monocytes % 7.7 %; Neutrophils # 9.12 10^3/uL (1.8-7.7); Neutrophils % 71.1 %; Nucleated Red Blood Cells % 0 %; Platelet Count 313 10^3/cmm (130-400); Red Blood Count 4.86 10^6/uL (4.1-5.3); Red Cell Distribution Width 13.8 % (12.1-15.1); White Blood Count 12.8 10^3/uL (4.0-10.0)
[2022-08-31 08:37] LABS: Erythrocyte Sedimentation Rate 63 mm/hr (0-15)
[2022-08-31] MEDS: sodium chloride 0.9% 250 ML 50 ML IV (08:43)
[2022-08-31] MEDS: acetaminophen 325 mg Tablet 650 MG PO (08:46)
[2022-08-31] MEDS: diphenhydrAMINE 50 mg/mL SDV 1mL IVP (08:47)
[2022-08-31 09:28] VITALS: BP 146/101; PULSE 71; RESP 18; TEMP 36.3; O2SAT 99
[2022-08-31 10:08] LABS: Alanine Aminotransferase 6 U/L (0-33); Albumin Level 3.4 g/dL (3.5-5.2); Alkaline Phosphatase 99 U/L (35-105); Aspartate Amino Transferase 10 U/L (0-32); Globulin 3.4 g/dL (1.3-4.6); Glomerular Filtration Rate 70.8 mL/min (90-130); Total Bilirubin 0.3 mg/dL (0.15-1.2); Total Protein 6.8 g/dL (6.6-8.7)
[2022-08-31 10:21] VITALS: BP 128/94; PULSE 87; RESP 18; TEMP 36.6; O2SAT 97
[2022-08-31 12:18] VITALS: BP 125/94; PULSE 91; RESP 18; TEMP 36.2; O2SAT 96
== END 2022-08-31 07:52 | disposition home or self-care (01) ==
LOC: ONCMED 07:52
PROVIDERS: PCP Family Medicine; Visit Provider Internal Medicine Rheumatology
DX: M06.9 Rheumatoid arthritis, unspecified (principal); Z79.899 Other long term (current) drug therapy
CPT/HCPCS: 80076; 82565; 85025; 85651; 96365; 96366; 96375; J1200; J2930; J7050; Q5115

== ENCOUNTER 2022-09-14 07:44 | Outpatient (CLI) | payer BC, SELFPAY ==
[2022-09-14 08:06] VITALS: BP 165/97; PULSE 90; RESP 18; TEMP 36.6; O2SAT 94
[2022-09-14] MEDS: sodium chloride 0.9% 250 ML 50 ML IV (08:16)
[2022-09-14] MEDS: diphenhydrAMINE 50 mg/mL SDV 1mL IVP (08:17)
[2022-09-14] MEDS: acetaminophen 325 mg Tablet 650 MG PO (08:24)
[2022-09-14 09:03] VITALS: BP 153/100; PULSE 79; RESP 18; TEMP 36.6; O2SAT 94
[2022-09-14 09:42] VITALS: BP 137/85; PULSE 81; RESP 18; TEMP 36.8
[2022-09-14 11:02] VITALS: BP 131/84; PULSE 81; RESP 18; TEMP 36.6; O2SAT 94
[2022-09-14 11:56] VITALS: BP 143/98; PULSE 93; RESP 18; TEMP 36.5; O2SAT 96
== END 2022-09-14 07:45 | disposition home or self-care (01) ==
LOC: ONCMED 07:45
PROVIDERS: PCP Family Medicine; Visit Provider Internal Medicine Rheumatology
DX: M05.79 Rheumatoid arthritis with rheumatoid factor of multiple sites without organ or systems involvement (principal)
CPT/HCPCS: 96365; 96366; 96375; J1200; J2930; J7050; Q5115

== ENCOUNTER 2023-01-23 21:36 | Emergency (ER) | payer BC, SELFPAY ==
[2023-01-23 21:44] VITALS: BP 162/110; PULSE 106; RESP 18; TEMP 36.7; O2SAT 99
--- NOTE | 2023-01-23 22:47 | CTR_ITS ---
PROCEDURE INFORMATION: Exam: CT Abdomen And Pelvis Without Contrast Exam date and time: 01/23/2023 11:11 PM Age: 38 years old Clinical indication: Abdominal pain; Flank; Right; Additional info: Right flank pain TECHNIQUE: Imaging protocol: Computed tomography of the abdomen and pelvis without contrast. Radiation optimization: All CT scans at this facility use at least one of these dose optimization techniques: automated exposure control; mA and/or kV adjustment per patient size (includes targeted exams where dose is matched to clinical indication); or iterative reconstruction. REPORTING DATA: Count of CT and Cardiac NM exams in prior 12 months: This patient has received [address] and 0 known cardiac nuclear medicine studies in the 12 months prior to the current study. COMPARISON: CT angio chest PE protcl [id number] 03/22/2022 4:04 AM RADIATION DOSE METRICS: Total DLP (mGy-cm): 1235.15 FINDINGS: Liver: Normal. No mass. Gallbladder and bile ducts: Normal. No calcified stones. No ductal dilation. Pancreas: Normal. No ductal dilation. Spleen: Normal. No splenomegaly. Adrenal glands: Normal. No mass. Kidneys and ureters: Bilateral punctate nonobstructing renal calyceal stones. Left kidney cyst with benign-appearing chronic calcifications. Stomach and bowel: Unremarkable. No obstruction. No mucosal thickening. Appendix: No evidence of appendicitis. Intraperitoneal space: Unremarkable. No free air. No significant fluid collection. Vasculature: Unremarkable. No abdominal aortic aneurysm. Lymph nodes: Unremarkable. No enlarged lymph nodes. Urinary bladder: Unremarkable as visualized. Reproductive: Left ovarian 3.2 cm and right ovarian 3.2 cm cysts suspected, likely follicular in nature, negative for surrounding inflammatory changes Bones/joints: Unremarkable. No acute fracture. Soft tissues: Unremarkable. CT/CT kidney stone [id number] IMPRESSION: 1. Negative for acute inflammatory process in the abdomen or pelvis. 2. Bilateral punctate nonobstructing renal calyceal stones. 3. Left kidney cyst with benign-appearing chronic calcifications. 4. Left ovarian 3.2 cm and right ovarian 3.2 cm cysts suspected, likely follicular in nature, negative for surrounding inflammatory changes
--- NOTE | 2023-01-23 22:48 | W.ED.ABDPA2 ---
HPI - Abdominal Pain General: Chief Complaint: Abdominal Pain Stated Complaint: Pain Lower Back Time Seen by Provider: 01/23/23 22:15 Source: patient Mode of arrival: ambulatory Limitations: no limitations History of Present Illness: 38-year-old female states she been having right flank along with pain in her upper abdomen over the last 3 to 4 days states it started in her right back it is tender to touch worse with movement states it seems to radiate to her abdomen had some nausea she denies any fevers she denies any severe pain she rates her pain a 6 out of 10 currently Associated Symptoms: Reports nausea; Denies chills, diarrhea, dysuria, fever(s) and vomiting Review of Systems Const: Denies: fever(s), chills, body aches or change in appetite Eyes: Denies: eye discomfort ENMT: Denies: throat pain or dental pain Card: Denies: chest pain Resp: Denies: dyspnea GI: Reports: abdominal pain and nausea; Denies: vomiting or diarrhea : Denies: dysuria Musc: Reports: back pain; Denies: neck pain Skin/Breast: Denies: rash Neuro: Denies: headache(s) PFSH ED PFSH: Medical History Chronic steroid use Depression with anxiety Endometriosis Fibromyalgia High risk medication use Hypertension Immunization counseling Joint pain Positive anti-CCP test Rheumatoid arthritis Seropositive rheumatoid arthritis of multiple sites Surgical History History of hand surgery Family History Other Cancer Chronic kidney disease (CKD) Diabetes Hypertension Lupus Rheumatoid arthritis Stroke Social History Smoking and tobacco status: former smoker Alcohol intake: current Physical Exam Const: COMMON NORMALS: no acute distress, patient oriented x3 and healthy appearing HENMT: COMMON NORMALS: normocephalic and atraumatic HEAD & SCALP: normocephalic and atraumatic Eye: COMMON NORMALS: conjunctivae normal CONJUNCTIVA: Yes conjunctivae normal Neck/C-Spine: COMMON NORMALS: full ROM and supple Chest: COMMONS NORMALS: normal inspection of the chest and normal palpation of entire chest wall Resp: COMMON NORMALS: normal respiratory effort, No retractions, No use of accessory muscles and clear to auscultation bilaterally AUSCULTATION: clear to auscultation bilaterally Cardio: COMMON NORMALS: regular rate, regular rhythm and No murmurs present (Cardio) RATE: regular rate RHYTHM: regular rhythm GI: COMMON NORMALS: Normal to inspection, nondistended, normoactive bowel sounds present, Soft to palpation, non-tender and no masses PALPATION: Yes Soft to palpation Back/Pelvis: OTHER: Tenderness over right thoracic back no midline tenderness Extremity: COMMON NORMALS: normal to inspection and full ROM Neuro: COMMON NORMALS: patient oriented x3, moves all extremities and no focal motor deficits Psych: COMMON NORMALS: mental status grossly normal, Normal thought process present and cooperative THOUGHT PROCESS: Normal thought process present Skin: COMMON NORMALS: no rashes or lesions noted and no wounds GENERAL SKIN EXAM: no rashes or lesions noted Course Vital Signs: Vital signs: Vital Signs Temperature 98.1 F 01/23/23 21:44 Pulse Rate 100 01/24/23 00:16 Respiratory Rate 20 H 01/24/23 00:16 Blood Pressure 200/131 01/24/23 00:16 Pulse Oximetry 95 01/24/23 00:16 Oxygen Delivery Me thod Room Air 01/24/23 00:16 MDM - Abdominal Pain Medical Decision Making Patient presents here with back pains likely muscular in nature patient's CT scan and blood work are all normal she is stable for discharge patient is to follow-up PCP and return if worsening she understand agree to plan. Lab Data 01/23/23 22:45 01/23/23 22:45 Labs/Radiology: Radiology Impressions Abdomen/Pelvis CT 01/23/23 22:47 IMPRESSION: 1. Negative for acute inflammatory process in the abdomen or pelvis. 2. Bilateral punctate nonobstructing renal calyceal stones. 3. Left kidney cyst with benign-appearing chronic calcifications. 4. Left ovarian 3.2 cm and right ovarian 3.2 cm cysts suspected, likely follicular in nature, negative for surrounding inflammatory changes Laboratory Results WBC 13.2 10^3/uL (4.0-10.0) H 01/23/23 22:45 RBC 5.18 10^6/uL (4.1-5.3) 01/23/23 22:45 Hgb 14.5 g/dL (11.5-15.3) 01/23/23 22:45 Hct 43.9 % (37.0-47.0) 01/23/23 22:45 MCV 84.7 fl (81-99) 01/23/23 22:45 MCH 28.0 pg (28.0-34.0) 01/23/23 22:45 MCHC 33.0 g/dL (30.0-36.0) 01/23/23 22:45 RDW 13.8 % (12.1-15.1) 01/23/23 22:45 Plt Count 322 10^3/cmm (130-400) 01/23/23 22:45 MPV 10.0 fL (7.4-10.4) 01/23/23 22:45 Neut % (Auto) 78.6 % 01/23/23 22:45 Lymph % (Auto) 13.9 % 01/23/23 22:45 [place] % (Auto) 7.0 % 01/23/23 22:45 Eos % (Auto) 0.1 % 01/23/23 22:45 Baso % (Auto) 0.2 % 01/23/23 22:45 Neut # (Auto) 10.37 10^3/uL (1.8-7.7) H 01/23/23 22:45 Lymph # (Auto) 1.8 10^3/uL (0.8-4.8) 01/23/23 22:45 [place] # (Auto) 0.9 10^3/uL (0.2-0.9) 01/23/23 22:45 Eos # (Auto) 0.0 10^3/uL (0.0-0.8) 01/23/23 22:45 Baso # (Auto) 0.0 10^3/uL (0.0-0.1) 01/23/23:45 Nucleated RBC % (auto) 0 % 01/23/23:45 Nucleated RBCs # 0.0 /100WBC 01/23/23 22:45 Sodium 137 mmol/L (136-145) 01/23/23 22:45 Potassium 4.1 mmol/L (3.5-5.1) 01/23/23 22:45 Chloride 104 mmol/L (98-107) 01/23/23 22:45 Carbon Dioxide 22 mmol/L (22-29) 01/23/23 22:45 Anion Gap 15.1 (5-19) 01/23/23 22:45 BUN 15 mg/dL (6-20) 01/23/23 22:45 Creatinine 0.9 mg/dL (0.5-0.9) 01/23/23 22:45 GFR Calculation 70.5 mL/min (90-130) L 01/23/23 22:45 Glucose 132 mg/dL (65-115) H 01/23/23 22:45 Calculated Osmolality 287 mOsm/kg (285-295) 01/23/23 22:45 Calcium 9.3 mg/dL (8.5-10.5) 01/23/23 22:45 Total Bilirubin 0.2 mg/dL (0.15-1.2) 01/23/23 22:45 AST 10 U/L (0-32) 01/23/23 22:45 ALT 7 U/L (0-33) 01/23/23 22:45 Alkaline Phosphatase 97 U/L (35-105) 01/23/23 22:45 Total Protein 7.1 g/dL (6.6-8.7) 01/23/23 22:45 Albumin 4.0 g/dL (3.5-5.2) 01/23/23 22:45 Globulin 3.1 g/dL (1.3-4.6) 01/23/23 22:45 Lipase 26 U/L (13-60) 01/23/23 22:45 HCG, Qual Negative (Negative) 01/23/23 22:45 Urine Color Yellow (Yellow) 01/24/23 00:04 Urine Appearance Hazy (CLEAR) A 01/24/23 00:04 Urine pH 5 (5-7) 01/24/23 00:04 Ur Specific [place] 1.030 (1.005-1.030) 01/24/23 00:04 Urine Protein 1+ (Negative) H 01/24/23 00:04 Urine Glucose (UA) Norm (Normal) 01/24/23 00:04 Urine Ketones 1+ (Negative) H 01/24/23 00:04 Urine Blood 2+ (Negative) H 01/24/23 00:04 Urine Nitrate Negative (Negative) 01/24/23 00:04 Urine Bilirubin Neg (Negative) 01/24/23 00:04 Urine Urobilinogen 1 mg/dL (Negative) H 01/24/23 00:04 Ur Leukocyte Esterase Trace (Negative) H 01/24/23 00:04 Urine RBC 5-10 /hpf (0-2) H 01/24/23 00:04 Urine WBC 0-4 /hpf (0-5) H 01/24/23 00:04 Ur Squamous Epith Cells 15-25 /hpf (0-5) H 01/24/23 00:04 Amorphous Sediment Not Reportable 01/24/23 00:04 Urine Bacteria 1+ /hpf (NONE) H 01/24/23 00:04 Urine Mucus 3+ /hpf 01/24/23 00:04 Discharge Plan Discharge Patient Disposition: Home Clinical Impression: Abdominal pain, Back pain Condition: Stable Prescriptions: New Naprosyn 500 mg tablet 500 mg PO BID PRN (Reason: pain) Qty: 20 0RF No Action promethazine 12.5 mg tablet 12.5 mg PO Q6H PRN (Reason: nausea and vomiting) Qty: 30 1RF hydrocodone-acetaminophen 5-325 mg tablet 1 tab PO Q6H PRN (Reason: pain (scale score 7-10)) 30 Days Qty: 120 0RF lisinopril 10 mg tablet 10 mg PO DAILY omeprazole 40 mg capsule,delayed release(DR/EC) 40 mg PO DAILY Qty: 90 1RF prednisone 10 mg tablet 10 mg PO DAILY Qty: 90 1RF Actemra ACTPen 162 mg/0.9 mL pen injector 162 mg SUBCUT .Q7days Qty: 4 3RF cyclobenzaprine 10 mg tablet 10 mg PO .Q8-12hours PRN (Reason: muscle spasm) Qty: 30 1RF gabapentin 300 mg capsule 300 mg PO BEDTIME Qty: 30 3RF escitalopram oxalate 20 mg tablet 20 mg PO DAILY Discharge Orders: Discharge ED (Routine); Ordered 01/24/23 Ordered By: Amber Williamson Referrals: Valdo Galeas MD [Primary Care Provider] - 1-3 days Discharge Diet: Advance as tolerated Discharge Activity: Resume usual activity Patient Instructions: Abdominal Pain (ED), Back Pain (ED) Coding Level of Care Code ED Chemical Machine Tender for Chg Donnell
[2023-01-23 22:50] LABS: Basophils % 0.2 %; Eosinophils % 0.1 %; Hematocrit 43.9 % (37.0-47.0); Hemoglobin 14.5 g/dL (11.5-15.3); Lymphocytes # 1.8 10^3/uL (0.8-4.8); Lymphocytes % 13.9 %; Mean Corpuscular Volume 84.7 fl (81-99); Monocytes # 0.9 10^3/uL (0.2-0.9); Neutrophils # 10.37 10^3/uL (1.8-7.7); Neutrophils % 78.6 %; Nucleated Red Blood Cells % 0 %; Platelet Count 322 10^3/cmm (130-400); Red Blood Count 5.18 10^6/uL (4.1-5.3); Red Cell Distribution Width 13.8 % (12.1-15.1); White Blood Count 13.2 10^3/uL (4.0-10.0)
[2023-01-23] MEDS: ondansetron 2 mg/ML SDV 2 mL 4 MG IVP (22:55)
[2023-01-23] MEDS: HYDROmorphone 1 mg/mL INJ 1 mL 0.5 MG IVP (22:55)
[2023-01-23 23:06] LABS: Alanine Aminotransferase 7 U/L (0-33); Alkaline Phosphatase 97 U/L (35-105); Anion Gap 15.1 (5-19); Aspartate Amino Transferase 10 U/L (0-32); Blood Urea Nitrogen 15 mg/dL (6-20); Calcium 9.3 mg/dL (8.5-10.5); Carbon Dioxide 22 mmol/L (22-29); Chloride 104 mmol/L (98-107); Globulin 3.1 g/dL (1.3-4.6); Glomerular Filtration Rate 70.5 mL/min (90-130); Glucose 132 mg/dL (65-115); Lipase 26 U/L (13-60); Osmolality Calculated 287 mOsm/kg (285-295); Potassium 4.1 mmol/L (3.5-5.1); Sodium 137 mmol/L (136-145); Total Bilirubin 0.2 mg/dL (0.15-1.2); Total Protein 7.1 g/dL (6.6-8.7)
[2023-01-23 23:14] LABS: HCG, Serum Qual Negative (Negative)
[2023-01-24 00:10] VITALS: RESP 18
[2023-01-24] MEDS: HYDROmorphone 1 mg/mL INJ 1 mL IVP (00:10)
[2023-01-24 00:16] VITALS: BP 200/131; PULSE 100; RESP 20; O2SAT 95
[2023-01-24 00:18] LABS: Add Urine Microscopic? YES; Bilirubin Urine Neg (Negative); Blood Urine 2+ (Negative); Glucose Urine UA Norm (Normal); Ketones Urine 1+ (Negative); Leukocyte Esterase Urine Trace (Negative); Nitrate Urine Negative (Negative); Protein Urine 1+ (Negative); Urine Appearance Hazy (CLEAR); Urine Color Yellow (Yellow); Urobilinogen Urine 1 mg/dL (Negative); pH Urine 5 (5-7)
[2023-01-24 00:19] LABS: Add Urine Culture? No; Bacteria Urine 1+ /hpf; Mucus Urine 3+ /hpf; Squamous Epithelial Cell Urine 15-25 /hpf (0-5); WBC Urine 0-4 /hpf (0-5)
[2023-01-24] MEDS: labetalol 5 mg/mL SDV 20mL 10 MG IVP (00:26)
[2023-01-24 00:42] VITALS: BP 184/125; PULSE 71; RESP 18; O2SAT 94
== END 2023-01-24 00:44 | disposition home or self-care (01) ==
PROVIDERS: Emergency Provider Emergency Medicine; PCP Family Medicine
DX: R10.10 Upper abdominal pain, unspecified (principal); M54.9 Dorsalgia, unspecified; I10 Essential (primary) hypertension; Z87.891 Personal history of nicotine dependence
CPT/HCPCS: 36415; 74176; 80053; 81001; 83690; 84703; 85025; 96374; 96375; 96376; 99285; J1170; J2405; J3490

== ENCOUNTER 2023-03-29 08:00 | Oncology outpatient (recurring) (ONCR) | payer BC, SELFPAY ==
[2023-03-16] VITALS (7 sets, daily range): BP systolic 153–171; BP diastolic 96–128; PULSE 74–106; RESP 18; TEMP 36.2–36.8; O2SAT 95–99; BMI 55.5
[2023-03-16 08:44] LABS: Basophils # 0.1 10^3/uL (0.0-0.1); Basophils % 0.3 %; Eosinophils # 0.1 10^3/uL (0.0-0.8); Eosinophils % 0.7 %; Hematocrit 42.3 % (37.0-47.0); Hemoglobin 13.8 g/dL (11.5-15.3); Lymphocytes # 3.2 10^3/uL (0.8-4.8); Lymphocytes % 21.3 %; Mean Corpuscular HGB Conc 32.6 g/dL (30.0-36.0); Mean Corpuscular Hemoglobin 27.4 pg (28.0-34.0); Mean Corpuscular Volume 84.1 fl (81-99); Mean Platelet Volume 9.3 fL (7.4-10.4); Monocytes # 1.3 10^3/uL (0.2-0.9); Monocytes % 8.2 %; Neutrophils % 69.2 %; Nucleated Red Blood Cells % 0 %; Platelet Count 327 10^3/cmm (130-400); Red Blood Count 5.03 10^6/uL (4.1-5.3); Red Cell Distribution Width 13.5 % (12.1-15.1); White Blood Count 15.2 10^3/uL (4.0-10.0)
[2023-03-16 09:08] LABS: Erythrocyte Sedimentation Rate 45 mm/hr (0-15)
[2023-03-16 09:20] LABS: Alanine Aminotransferase 7 U/L (0-33); Albumin Level 3.7 g/dL (3.5-5.2); Alkaline Phosphatase 106 U/L (35-105); Aspartate Amino Transferase 8 U/L (0-32); Globulin 3.1 g/dL (1.3-4.6); Glomerular Filtration Rate 70.5 mL/min (90-130); Total Bilirubin 0.2 mg/dL (0.15-1.2); Total Protein 6.8 g/dL (6.6-8.7)
[2023-03-16] MEDS: acetaminophen 325 mg Tablet 650 MG PO (09:20)
[2023-03-16] MEDS: sodium chloride 0.9% 250 ML 75 ML IV (09:20)
[2023-03-16] MEDS: dexamethasone 10 mg/mL INJ 6 MG IVP (09:23)
[2023-03-16] MEDS: diphenhydrAMINE 50 mg/mL SDV 1mL IVP (09:28)
[2023-03-16] MEDS: rituximab 1,000 MG in sodium chloride 0.9% 500 ML 100 MG IV (09:50)
[2023-03-29 07:54] VITALS: BMI 47.5
[2023-03-29 08:11] VITALS: BP 121/91; PULSE 97; RESP 18; TEMP 36.8; O2SAT 99
[2023-03-29] MEDS: diphenhydrAMINE 50 mg/mL SDV 1mL 25 MG IVP (08:31)
[2023-03-29] MEDS: acetaminophen 325 mg Tablet 650 MG PO (08:31)
[2023-03-29] MEDS: sodium chloride 0.9% 250 ML 75 ML IV (08:32)
[2023-03-29 08:50] VITALS: BP 124/85; PULSE 87; RESP 18; TEMP 36.8; O2SAT 97
[2023-03-29] MEDS: rituximab-pvvr 1,000 MG in sodium chloride 0.9% 500 ML 200 MG IV (08:50)
[2023-03-29 09:24] VITALS: BP 142/88; PULSE 82; RESP 18; TEMP 36.2; O2SAT 97
[2023-03-29 10:00] VITALS: BP 142/88; PULSE 82; RESP 18; TEMP 35.8; O2SAT 98
[2023-03-29 10:30] VITALS: BP 130/84; PULSE 74; RESP 18; TEMP 36.2; O2SAT 97
[2023-03-29 14:02] VITALS: BP 132/100; PULSE 84; RESP 18; TEMP 36.3; O2SAT 95
== END 2023-03-31 23:59 | disposition home or self-care (01) ==
PROVIDERS: PCP Family Medicine; Visit Provider Internal Medicine Rheumatology
DX: M05.79 Rheumatoid arthritis with rheumatoid factor of multiple sites without organ or systems involvement (principal); Z79.899 Other long term (current) drug therapy
CPT/HCPCS: 80076; 82565; 85025; 85651; 96375; 96413; 96415; J1100; J1200; J7040; J7050; J9312; Q5119

== ENCOUNTER 2023-09-08 09:40 | Outpatient (CLI) | payer BC, SELFPAY ==
[2023-09-08 10:46] LABS: Basophils % 0.3 %; Eosinophils # 0.2 10^3/uL (0.0-0.8); Eosinophils % 1.4 %; Hematocrit 44.7 % (36-47); Lymphocytes # 2.2 10^3/uL (0.8-4.8); Lymphocytes % 17.4 %; Mean Corpuscular HGB Conc 33.1 g/dL (30-55); Mean Corpuscular Hemoglobin 27.8 pg (27-33); Mean Platelet Volume 9.9 fL (7.4-10.4); Monocytes # 0.9 10^3/uL (0.2-0.9); Monocytes % 7.2 %; Neutrophils # 9.18 10^3/uL (1.8-7.7); Neutrophils % 73.5 %; Nucleated Red Blood Cells % 0 %; Platelet Count 311 10^3/cmm (157-399); Red Blood Count 5.32 10^6/uL (3.85-5.65); White Blood Count 12.49 10^3/uL (3.29-11.43)
[2023-09-08 11:09] LABS: Alanine Aminotransferase 8 U/L (0-33); Albumin Level 3.8 g/dL (3.5-5.2); Alkaline Phosphatase 113 U/L (35-105); Aspartate Amino Transferase 11 U/L (0-32); Globulin 3.4 g/dL (1.3-4.6); Glomerular Filtration Rate 70.5 mL/min (90-130); Total Bilirubin 0.5 mg/dL (0.15-1.2); Total Protein 7.2 g/dL (6.6-8.7)
== END 2023-09-08 09:41 | disposition home or self-care (01) ==
LOC: LAB 09:44
PROVIDERS: PCP Family Medicine; Visit Provider Internal Medicine Rheumatology
DX: Z79.899 Other long term (current) drug therapy (principal); M05.79 Rheumatoid arthritis with rheumatoid factor of multiple sites without organ or systems involvement
CPT/HCPCS: 36415; 80076; 82565; 85025; 86140

== ENCOUNTER 2023-09-21 09:41 | Emergency (ER) | payer BC, SELFPAY ==
[2023-09-21 09:58] VITALS: BP 188/132; PULSE 121; RESP 16; TEMP 36.8; O2SAT 98; BMI 49.6
--- NOTE | 2023-09-21 10:12 | XRR_ITS ---
PROCEDURE INFORMATION: Exam: XR Chest Exam date and time: 09/21/2023 10:36 AM Age: 38 years old Clinical indication: Pain; Angina pectoris; Additional info: Chest pain TECHNIQUE: Imaging protocol: Radiologic exam of the chest. Views: 1 view. COMPARISON: CT angio chest PE protcl [id number] 03/22/2022 4:04 AM FINDINGS: Lungs: Unremarkable. No consolidation. Pleural spaces: Unremarkable. No pleural effusion. No pneumothorax. Heart/Mediastinum: Unremarkable. No cardiomegaly. Bones/joints: Unremarkable. XR/XR chest 1V portable [id number] IMPRESSION: No acute findings.
--- NOTE | 2023-09-21 10:14 | ECG_ITS ---
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 Measurements Intervals [place] Rate: 114 P: 42 TN: 120 QRS: 40 QRSD: 80 T: 50 QT: 329 QTc: 455 Interpretive Statements SINUS TACHYCARDIA POSSIBLE LEFT ATRIAL ENLARGEMENT [-0.1mV P-WAVE IN V1/V2] ABNORMAL RHYTHM ECG Compared to ECG 03/22/2022 04:11:34 Sinus rhythm no longer present Electronically Signed On 09-22-2023 19:16:29 COMMUNICATIONS ASSISTANT by Wilfrid Wise M.D. [id number]
[2023-09-21] MEDS: hyDRALAzine 20 mg/mL INJ 1 mL 10 MG IVP ×2 (10:23→11:20)
[2023-09-21 10:25] VITALS: BP 189/123; PULSE 111; RESP 19; O2SAT 92
--- NOTE | 2023-09-21 10:30 | ED_ITS ---
HPI - Chest Pain 2 General: Chief Complaint: Chest Pain Stated Complaint: sent over, high bp Time Seen by Provider: 09/21/23 10:10 Source: patient Mode of arrival: ambulatory History of Present Illness: 38-year-old female presents emergency ro om she was at the infusion clinic where she gets infusions for rheumatoid arthritis, and was noted to have elevated blood pressure. She states she has a mild heaviness in her chest but denies any specific chest pain no shortness of breath no difficulty speech swallowing or gait ambulated without any evidence of ataxia. MD complaint: chest discomfort Quality: tightness (Mild) Relieving factors: nothing Exacerbating factors: nothing Associated symptoms: Deny abdominal pain, diaphoresis, dyspnea, fever(s), leg edema, nausea, palpitations, sense of impending doom, syncope or vomiting Treatment prior to arrival: none Review of Systems 2 Const: Denies: fever(s), chills or diaphoresis Card: Denies: chest pain, palpitations or syncope Resp: Denies: dyspnea GI: Denies: abdominal pain, nausea or vomiting : Denies: dysuria, urinary frequency or urinary urgency Musc: Denies: neck pain or back pain Skin/Breast: Denies: rash PFSH ED 2 PFSH: Medical History Chronic steroid use Immunization counseling High risk medication use Seropositive rheumatoid arthritis of multiple sites Rheumatoid arthritis Joint pain Positive anti-CCP test Hypertension Endometriosis Fibromyalgia Depression with anxiety Surgical History History of hand surgery Family History Other Cancer Chronic kidney disease (CKD) Diabetes Hypertension Lupus Rheumatoid arthritis Stroke Social History Smoking and tobacco/nicotine status: former use of tobacco/nicotine Alcohol intake: current Female Reproductive History: Date of last menstrual period: 08/21/23 Physical Exam 2 Const: COMMON NORMALS: no acute distress GENERAL APPEARANCE: cooperative and comfortable ORIENTATION/CONSCIOUSNESS: Yes awake, Yes oriented to person, Yes oriented to place and Yes oriented to time HENMT: COMMON NORMALS: normocephalic, atraumatic and hearing grossly normal bilaterally HEAD & SCALP: normocephalic and atraumatic Resp: COMMON NORMALS: normal respiratory effort, No retractions, No use of accessory muscles and clear to auscultation bilaterally AUSCULTATION: clear to auscultation bilaterally Cardio: COMMON NORMALS: regular rate, regular rhythm and No murmurs present (Cardio) RATE: regular rate RHYTHM: regular rhythm GI: COMMON NORMALS: Soft to palpation and No hepatosplenomegaly present A USCULTATION: Yes normoactive bowel sounds PALPATION: Yes Soft to palpation, No Tenderness to palpation present (GI), No Guarding due to palpation present (GI) and Yes No hepatosplenomegaly present Extremity: COMMON NORMALS: normal to inspection, capillary refill normal, no clubbing, cyanosis or edema, no calf tenderness and no pedal edema Neuro: SENSORIUM/ORIENTATION: Yes oriented to person, Yes oriented to place and Yes oriented to time Skin: COMMON NORMALS: no rashes or lesions noted GENERAL SKIN EXAM: no rashes or lesions noted Course 2 Vital Signs: Vital signs: Vital Signs Temperature 98.3 F 09/21/23 09:58 Pulse Rate 107 H 09/21/23 12:57 Respiratory Rate 15 09/21/23 12:57 Blood Pressure 136/100 09/21/23 12:57 Pulse Oximetry 94 09/21/23 12:57 Oxygen Delivery Me thod Room Air 09/21/23 12:45 MDM - Chest Pain Medical Decision Making Blood pressure improved with medications given discharge patient home with amlodipine 2.5 mg daily and metoprolol 12.5 mg daily. Recheck with primary care doctor within the next week. Return if has further problems. Medical Records I reviewed the patient's medical records. Lab Data I reviewed the patient's lab results. 09/21/23 09:19 Radiology Impressions Chest X-Ray 09/21/23 10:12 IMPRESSION: No acute findings. Laboratory Results Sodium 136 mmol/L (136-145) 09/21/23 09:19 Potassium 4.0 mmol/L (3.5-5.1) 09/21/23 09:19 Chloride 102 mmol/L (98-107) 09/21/23 09:19 Carbon Dioxide 23 mmol/L (22-29) 09/21/23 09:19 Anion Gap 15.0 (5-19) 09/21/23 09:19 BUN 14 mg/dL (6-20) 09/21/23 09:19 Creatinine 0.9 mg/dL (0.5-0.9) 09/21/23 09:19 GFR Calculation 70.5 mL/min (90-130) L 09/21/23 09:19 Glucose 117 mg/dL (65-115) H 09/21/23 09:19 Calculated Osmolality 284 mOsm/kg (285-295) L 09/21/23 09:19 Calcium 9.0 mg/dL (8.5-10.5) 09/21/23 09:19 Total Bilirubin 0.3 mg/dL (0.15-1.2) 09/21/23 09:19 AST 11 U/L (0-32) 09/21/23 09:19 ALT 7 U/L (0-33) 09/21/23 09:19 Alkaline Phosphatase 102 U/L (35-105) 09/21/23 09:19 Total Protein 6.7 g/dL (6.6-8.7) 09/21/23 09:19 Albumin 3.6 g/dL (3.5-5.2) 09/21/23 09:19 Globulin 3.1 g/dL (1.3-4.6) 09/21/23 09:19 HCG, Qual Negative (Negative) 09/21/23 10:30 Random Cortisol 8.62 ug/dL (2.47-19.5) 09/21/23 09:19 Urine Color Yellow (Yellow) 09/21/23 10:30 Urine Appearance Clear (CLEAR) 09/21/23 10:30 Urine pH 5 (5-7) 09/21/23 10:30 Ur Specific [place] 1.015 (1.005-1.030) 09/21/23 10:30 Urine Protein Neg (Negative) 09/21/23 10:30 Urine Glucose (UA) Norm (Normal) 09/21/23 10:30 Urine Ketones Negative (Negative) 09/21/23 10:30 Urine Blood Neg (Negative) 09/21/23 10:30 Urine Nitrate Negative (Negative) 09/21/23 10:30 Urine Bilirubin Neg (Negative) 09/21/23 10:30 Prot Sulfosalicylic Acd Cancelled 09/21/23 10:12 Urine Urobilinogen Norm mg/dL (Negative) 09/21/23 10:30 Ur Leukocyte Esterase Negative (Negative) 09/21/23 10:30 All radiology interpretation(s) finalized by discharge Discharge Plan Discharge Patient Disposition: Home Clinical Impression: Elevated blood pressure reading, Medication side effect Condition: Stable Prescriptions: New amlodipine 2.5 mg tablet 2.5 mg PO DAILY Qty: 30 0RF Toprol XL 25 mg tablet extended release 24 hr 12.5 mg PO DAILY Qty: 30 0RF No Action prednisone 10 mg tablet 10 mg PO DAILY PRN (Reason: joint pain) Discharge Orders: Discharge ED (Routine); Ordered 09/21/23 Ordered By: Richy Pena Referrals: Valdo Galeas MD [Primary Care Provider] - Discharge Diet: Usual diet Discharge Activity: Increase activity as tolerated Patient Instructions: Opioid Safety, Pain Management Activity Restrictions/Additional Instructions: Thank you for choosing [facility] for your healthcare needs today. Please realize this is an emergency room and that we are providing you with a medical screening exam and this may not be complete and all inclusive of all the testing and or work up that you may need to determine your ailment or severity of your illness. It is very important that you follow up as instructed or that you return to the Emergency Department should you have concerns or if your condition changes or worsens in any way. You are seen today for elevated blood pressure your blood pressure was markedly elevated did respond to medications given. Recommend that you start amlodipine 2.5 mg daily metoprolol 12.5 mg daily. Monitor your blood pressure daily if your blood pressure reading is below 150/90 you can hold the metoprolol. Follow-up with your doctor within 1 week to reevaluate your blood pressure keep a log at home checking your blood pressure at least once or twice a daily after 15 minutes of rest Coding Level of Care Code ED Bank Secrecy Act Officer for Emmanuel Jacobo
[2023-09-21 10:43] LABS: Add Urine Microscopic? NO; Charge for UA Resulting for Rev
[2023-09-21 10:47] LABS: Bilirubin Urine Neg (Negative); Blood Urine Neg (Negative); Glucose Urine UA Norm (Normal); Ketones Urine Negative (Negative); Leukocyte Esterase Urine Negative (Negative); Nitrate Urine Negative (Negative); Protein Urine Neg (Negative); Specific Gravity, Urine 1.015 (1.005-1.030); Urine Appearance Clear (CLEAR); Urine Color Yellow (Yellow); Urobilinogen Urine Norm (Negative); pH Urine 5 (5-7)
[2023-09-21 10:54] LABS: HCG, Serum Qual Negative (Negative)
[2023-09-21 10:55] LABS: Alanine Aminotransferase 7 U/L (0-33); Albumin Level 3.6 g/dL (3.5-5.2); Alkaline Phosphatase 102 U/L (35-105); Aspartate Amino Transferase 11 U/L (0-32); Blood Urea Nitrogen 14 mg/dL (6-20); Carbon Dioxide 23 mmol/L (22-29); Chloride 102 mmol/L (98-107); Globulin 3.1 g/dL (1.3-4.6); Glomerular Filtration Rate 70.5 mL/min (90-130); Glucose 117 mg/dL (65-115); Osmolality Calculated 284 mOsm/kg (285-295); Sodium 136 mmol/L (136-145); Total Bilirubin 0.3 mg/dL (0.15-1.2); Total Protein 6.7 g/dL (6.6-8.7)
--- NOTE | 2023-09-21 10:55 | PC.PHAR ---
pt scheduled for infusion today but was sent over for bp
[2023-09-21 11:18] VITALS: BP 217/119; PULSE 111; RESP 18; O2SAT 93
[2023-09-21] MEDS: labetalol 5 mg/mL SDV 20mL 10 MG IVP (11:21)
[2023-09-21] MEDS: metoprolol tartrate 50 mg Tablet PO (11:50)
[2023-09-21] MEDS: promethazine 25 mg/mL SDV 1 mL IM (11:54)
[2023-09-21 11:58] VITALS: BP 103/61; PULSE 83; RESP 25; O2SAT 94
[2023-09-21 12:03] LABS: Cortisol Random 8.62 ug/dL (2.47-19.5)
[2023-09-21 12:45] VITALS: BP 117/85; PULSE 97; RESP 31; O2SAT 92
[2023-09-21 12:57] VITALS: BP 136/100; PULSE 107; RESP 15; O2SAT 94
== END 2023-09-21 13:01 | disposition home or self-care (01) ==
PROVIDERS: Emergency Provider Family Medicine; PCP Family Medicine
DX: I10 Essential (primary) hypertension (principal); T50.995A Adverse effect of other drugs, medicaments and biological substances, initial encounter; Z87.891 Personal history of nicotine dependence
CPT/HCPCS: 71045; 80053; 81003; 82248; 82533; 84703; 85025; 85651; 93005; 96372; 96374; 96375; 96376; 99284; J0360; J2550; J3490

== ENCOUNTER 2023-09-28 11:30 | Oncology outpatient (recurring) (ONCR) | payer BC, SELFPAY ==
[2023-09-21 09:21] VITALS: BP 165/119; PULSE 96; TEMP 37; O2SAT 99
[2023-09-21 09:26] LABS: Basophils % 0.2 %; Eosinophils # 0.2 10^3/uL (0.0-0.8); Eosinophils % 1.3 %; Hematocrit 41.4 % (36-47); Lymphocytes # 2.4 10^3/uL (0.8-4.8); Lymphocytes % 18.7 %; Mean Corpuscular HGB Conc 32.9 g/dL (30-55); Mean Corpuscular Hemoglobin 27.6 pg (27-33); Mean Corpuscular Volume 84.1 fl (85-98); Mean Platelet Volume 9.4 fL (7.4-10.4); Monocytes # 1.1 10^3/uL (0.2-0.9); Monocytes % 8.2 %; Neutrophils # 9.22 10^3/uL (1.8-7.7); Neutrophils % 71.2 %; Nucleated Red Blood Cells % 0 %; Platelet Count 312 10^3/cmm (157-399); Red Blood Count 4.92 10^6/uL (3.85-5.65); Red Cell Distribution Width 14.4 % (12.1-15.1); White Blood Count 12.97 10^3/uL (3.29-11.43)
[2023-09-21 09:59] LABS: Erythrocyte Sedimentation Rate 51 mm/hr (0-15)
[2023-09-28 12:44] VITALS: BP 159/116; PULSE 102; RESP 16; TEMP 36.6; O2SAT 97
[2023-09-28] MEDS: acetaminophen 325 mg Tablet 650 MG PO (13:30)
[2023-09-28] MEDS: sodium chloride 0.9% 250 ML 75 ML IV (13:30)
[2023-09-28] MEDS: diphenhydrAMINE 50 mg/mL SDV 1mL 25 MG IVP (13:31)
[2023-09-28] MEDS: methylPREDNISolone sod succ 125 mg SDV IVP (13:31)
[2023-09-28 13:57] VITALS: BP 146/106; PULSE 94; RESP 16; TEMP 36.7; O2SAT 98
[2023-09-28] MEDS: rituximab-pvvr 1,000 MG in sodium chloride 0.9% 500 ML 75 MG IV (13:57)
[2023-09-28 14:35] VITALS: BP 138/96; PULSE 95; RESP 16; TEMP 36.6; O2SAT 98
[2023-09-28 15:05] VITALS: BP 145/89; PULSE 84; RESP 17; TEMP 36.1; O2SAT 97
[2023-09-28 17:19] VITALS: BP 147/99; PULSE 95; RESP 16; TEMP 36.6; O2SAT 97
== END 2023-10-01 23:59 | disposition home or self-care (01) ==
PROVIDERS: PCP Family Medicine; Visit Provider Internal Medicine Rheumatology
DX: M05.89 Other rheumatoid arthritis with rheumatoid factor of multiple sites (principal); Z53.9 Procedure and treatment not carried out, unspecified reason
CPT/HCPCS: 82248; 85025; 85651; 96374; 96375; 96413; 96415; J1200; J2930; J7040; J7050; Q5119

== ENCOUNTER 2023-10-11 10:09 | Oncology outpatient (recurring) (ONCR) | payer BC, SELFPAY ==
[2023-10-11 11:51] VITALS: BP 152/101; PULSE 87; RESP 17; O2SAT 96
[2023-10-11] MEDS: sodium chloride 0.9% 250 ML 75 ML IV (12:11)
[2023-10-11] MEDS: diphenhydrAMINE 50 mg/mL SDV 1mL 25 MG IVP (12:15)
[2023-10-11] MEDS: acetaminophen 325 mg Tablet 650 MG PO (12:19)
[2023-10-11] MEDS: methylPREDNISolone sod succ 125 mg SDV IVP (12:20)
[2023-10-11 12:40] VITALS: BP 146/92; PULSE 84; RESP 16; TEMP 36.3; O2SAT 98
[2023-10-11] MEDS: rituximab-pvvr 1,000 MG in sodium chloride 0.9% 500 ML 70 MG IV (12:40)
[2023-10-11 13:10] VITALS: BP 139/82; PULSE 82; RESP 16; TEMP 36.3; O2SAT 94
[2023-10-11 13:40] VITALS: BP 134/82; PULSE 82; RESP 16; TEMP 35.9; O2SAT 94
[2023-10-11 14:10] VITALS: BP 138/90; PULSE 72; RESP 17; TEMP 36.1; O2SAT 95
[2023-10-11] MEDS: sodium chloride 0.9% (100 ml) 100 ML 75 ML (15:40)
[2023-10-11 15:55] VITALS: BP 149/96; PULSE 93; RESP 17; TEMP 36.1; O2SAT 95
== END 2023-11-01 23:59 | disposition home or self-care (01) ==
PROVIDERS: PCP Family Medicine; Visit Provider Internal Medicine Rheumatology
DX: M05.89 Other rheumatoid arthritis with rheumatoid factor of multiple sites (principal)
CPT/HCPCS: 96367; 96413; 96415; J1200; J2930; J7040; J7050; Q5119

== ENCOUNTER 2024-01-21 00:22 | Emergency (ER) | payer OTHER, SELFPAY ==
[2024-01-21 00:28] VITALS: BP 167/120; PULSE 97; RESP 20; TEMP 36.6; O2SAT 94; BMI 34.3
--- NOTE | 2024-01-21 00:28 | ECG_ITS ---
[facility] Test Date: 2024-01-21 Pat Name: Andie Joyce Department: Room: Gender: Female Procedural Nurse: : 1985 Requested By: Jose M Alonso Order Number: [id number] Josef MD: Yehuda Golden M.D. Measurements Intervals [place] Rate: 128 P: 50 [place]: 135 QRS: 43 QRSD: 79 T: 52 QT: 310 QTc: 454 Interpretive Statements SINUS TACHYCARDIA ABNORMAL RHYTHM ECG Compared to ECG 09/21/2023 10:14:17 No significant changes Electronically Signed On 01-21-2024 8:13:47 CDT by Yehuda Golden M.D. [id number]
--- NOTE | 2024-01-21 00:37 | XRR_ITS ---
PROCEDURE INFORMATION: Exam: XR Chest Exam date and time: 01/21/2024 1:06 AM Age: 39 years old Clinical indication: Chest pressure; Patient HX: C/O chest pain. On multiple medications for hypertension. TECHNIQUE: Imaging protocol: Radiologic exam of the chest. Views: 1 view. COMPARISON: CR XR chest 1V portable [id number] 09/21/2023 10:36 AM FINDINGS: Lungs: Unremarkable. No consolidation. Pleural spaces: Unremarkable. No pleural effusion. No pneumothorax. Heart/Mediastinum: Unremarkable. No cardiomegaly. Bones/joints: Unremarkable. XR/XR chest 1V portable [id number] IMPRESSION: No acute findings.
[2024-01-21 01:29] LABS: Basophils # 0.1 10^3/uL (0.0-0.1); Basophils % 0.4 %; Eosinophils # 0.1 10^3/uL (0.0-0.8); Eosinophils % 0.7 %; Hematocrit 47.1 % (36-47); Lymphocytes # 2.5 10^3/uL (0.8-4.8); Lymphocytes % 14.7 %; Mean Corpuscular HGB Conc 32.9 g/dL (30-55); Mean Corpuscular Hemoglobin 28.5 pg (27-33); Mean Corpuscular Volume 86.7 fl (85-98); Mean Platelet Volume 10.2 fL (7.4-10.4); Monocytes # 1.3 10^3/uL (0.2-0.9); Monocytes % 7.6 %; Neutrophils # 12.88 10^3/uL (1.8-7.7); Neutrophils % 76.2 %; Nucleated Red Blood Cells % 0 %; Platelet Count 396 10^3/cmm (157-399); Red Blood Count 5.43 10^6/uL (3.85-5.65); Red Cell Distribution Width 14.6 % (12.1-15.1); White Blood Count 16.89 10^3/uL (3.29-11.43)
--- NOTE | 2024-01-21 01:33 | ED_ITS ---
HPI - Chest Pain 2 General: Chief Complaint: Chest Pain Stated Complaint: Left Shoulder Pain and Back Time Seen by Provider: 01/21/24 01:04 History of Present Illness: Patient presents to the ER with complaints of intermittent chest pain substernally that radiates numbness and tingling into her left arm and sometimes up into her jaw. Patient states she is also felt flushed and just not quite right throughout the day. Patient does have a history of hypertension and is on the least 3 different blood pressure medicines. Patient has no known cardiac history herself. Patient is obese and does take occasional phentermine. Patient also has RA and takes occasional prednisone. Review of Systems 2 General: Reports: 10 or more systems reviewed and unremarkable except in HPI and below PFSH ED 2 PFSH: Medical History Chronic steroid use Immunization counseling High risk medication use Seropositive rheumatoid arthritis of multiple sites Rheumatoid arthritis Joint pain Positive anti-CCP test Hypertension Endometriosis Fibromyalgia Depression with anxiety Surgical History History of hand surgery Family History Other Cancer Chronic kidney disease (CKD) Diabetes Hypertension Lupus Rheumatoid arthritis Stroke Social History Smoking and tobacco/nicotine status: former use of tobacco/nicotine Alcohol intake: current Physical Exam 2 Const: COMMON NORMALS: no acute distress, average body habitus, patient oriented x3, no limitations, healthy appearing, alert and well nourished HENMT: COMMON NORMALS: normocephalic, atraumatic, hearing grossly normal bilaterally, external ears normal, Normal external nose present, moist oral mucous membranes and oropharynx normal HEAD & SCALP: normocephalic and atraumatic NOSE: Normal external nose present EXTERNAL EAR: Yes external ears normal Neck/C-Spine: COMMON NORMALS: no JVD Chest: COMMONS NORMALS: normal inspection of the chest and normal palpation of entire chest wall Resp: COMMON NORMALS: normal respiratory effort, No retractions, No use of accessory muscles and clear to auscultation bilaterally AUSCULTATION: clear to auscultation bilaterally Cardio: COMMON NORMALS: no JVD, regular rhythm, S1 normal heart sound present, S2 normal heart sound present, No gallops present (Cardio), No clicks present (Cardio), No murmurs present (Cardio) and No rub (Cardio); negative for regular rate (Mildly tachycardic) RATE: abnormal rate (Mildly tachycardic) RHYTHM: regular rhythm HEART SOUNDS: S1 normal heart sound present and S2 normal heart sound present GI: COMMON NORMALS: Normal to inspection, nondistended, normoactive bowel sounds present, Soft to palpation, non-tender, No hepatosplenomegaly present and no masses PALPATION: Yes Soft to palpation and Yes No hepatosplenomegaly present Neuro: COMMON NORMALS: patient oriented x3 SENSORIUM/ORIENTATION: Yes alert Course 2 Vital Signs: Vital signs: Vital Signs Temperature 97.9 F 01/21/24 00:28 Pulse Rate 113 H 01/21/24 05:00 Respiratory Rate 20 H 01/21/24 00:28 Blood Pressure 136/107 01/21/24 03:41 Pulse Oximetry 97 01/21/24 05:00 Oxygen Delivery Me thod Room Air 01/21/24 05:00 MDM - Chest Pain Medical Decision Making Patient was worked up in a standard cardiac fashion with serial EKGs, labs, chest x-ray, all these are fairly benign except for elevated white count of 16.8 which is thought to due to her intermittent prednisone use and a BUN/creatinine of 15 and 1.2, patient was bolused 1 L normal saline, patient's troponins were benign. Is thought that patient's pain is not cardiac in nature. Patient will be discharged home to follow-up with her PCP on an as-needed basis. Differential Diagnosis Unlikely acute massive pulmonary embolism, acute respiratory failure, acute myocardial infarction, cardiac arrest or sudden cardiac Medical Records I reviewed the patient's medical records. Lab Data I reviewed the patient's lab results. 01/21/24 01:19 01/21/24 01:19 Radiology Impressions Chest X-Ray 01/21/24 00:37 IMPRESSION: No acute findings. Laboratory Results WBC 16.89 10^3/uL (3.29-11.43) H 01/21/24 01:19 RBC 5.43 10^6/uL (3.85-5.65) 01/21/24 01:19 Hgb 15.50 g/dL (11.27-16.99) 01/21/24 01:19 Hct 47.1 % (36-47) H 01/21/24 01:19 MCV 86.7 fl (85-98) 01/21/24 01:19 MCH 28.5 pg (27-33) 01/21/24 01:19 MCHC 32.9 g/dL (30-55) 01/21/24 01:19 RDW 14.6 % (12.1-15.1) 01/21/24 01:19 Plt Count 396 10^3/cmm (157-399) 01/21/24 01:19 MPV 10.2 fL (7.4-10.4) 01/21/24 01:19 Neut % (Auto) 76.2 % 01/21/24 01:19 Lymph % (Auto) 14.7 % 01/21/24 01:19 Camp % (Auto) 7.6 % 01/21/24 01:19 Eos % (Auto) 0.7 % 01/21/24 01:19 Baso % (Auto) 0.4 % 01/21/24 01:19 Neut # (Auto) 12.88 10^3/uL (1.8-7.7) H 01/21/24 01:19 Lymph # (Auto) 2.5 10^3/uL (0.8-4.8) 01/21/24 01:19 Camp # (Auto) 1.3 10^3/uL (0.2-0.9) H 01/21/24 01:19 Eos # (Auto) 0.1 10^3/uL (0.0-0.8) 01/21/24 01:19 Baso # (Auto) 0.1 10^3/uL (0.0-0.1) 01/21/24 01:19 Nucleated RBC % (auto) 0 % 01/21/24 01:19 Nucleated RBCs # 0.0 /100WBC 01/21/24 01:19 Sodium 135 mmol/L (136-145) L 01/21/24 01:19 Potassium 3.7 mmol/L (3.5-5.1) 01/21/24 01:19 Chloride 96 mmol/L (98-107) L 01/21/24 01:19 Carbon Dioxide 26 mmol/L (22-29) 01/21/24 01:19 Anion Gap 16.7 (5-19) 01/21/24 01:19 BUN 15 mg/dL (6-20) 01/21/24 01:19 Creatinine 1.2 mg/dL (0.5-0.9) H 01/21/24 01:19 GFR Calculation 50.3 mL/min (90-130) L 01/21/24 01:19 Glucose 120 mg/dL (65-115) H 01/21/24 01:19 Calculated Osmolality 282 mOsm/kg (285-295) L 01/21/24 01:19 Calcium 9.5 mg/dL (8.5-10.5) 01/21/24 01:19 Troponin T Baseline < 6 ng/L (0-10) 01/21/24 01:19 Troponin T 120 Minute 6.00 ng/L (0-10) 01/21/24 03:05 Delta Troponin T 0.10823 ABS# (0-10) 01/21/24 03:05 Urine Color Dark yellow (Yellow) 01/21/24 04:35 Urine Appearance Hazy (CLEAR) A 01/21/24 04:35 Urine pH 5 (5-7) 01/21/24 04:35 Ur Specific [place] 1.020 (1.005-1.030) 01/21/24 04:35 Urine Protein Trace (Negative) 01/21/24 04:35 Urine Glucose (UA) Norm (Normal) 01/21/24 04:35 Urine Ketones Negative (Negative) 01/21/24 04:35 Urine Blood 3+ (Negative) H 01/21/24 04:35 Urine Nitrate Negative (Negative) 01/21/24 04:35 Urine Bilirubin Neg (Negative) 01/21/24 04:35 Urine Urobilinogen Neg mg/dL (Negative) 01/21/24 04:35 Ur Leukocyte Esterase Negative (Negative) 01/21/24 04:35 Urine RBC 0-4 /hpf (0-2) H 01/21/24 04:35 Urine WBC 5-10 /hpf (0-5) H 01/21/24 04:35 Ur Squamous Epith Cells 5-10 /hpf (0-5) H 01/21/24 04:35 Amorphous Sediment Trace /hpf 01/21/24 04:35 Urine Bacteria 1+ /hpf (NONE) H 01/21/24 04:35 Hyaline Casts 5-10 /lpf H 01/21/24 04:35 Fine Granular Casts 0-4 /lpf H 01/21/24 04:35 Urine Mucus Trace /hpf 01/21/24 04:35 All radiology interpretation(s) finalized by discharge Discharge Plan Discharge Patient Disposition: Home Clinical Impression: Atypical chest pain Condition: Stable Prescriptions: No Action amlodipine 10 mg tablet 10 mg PO DAILY Qty: 30 3RF Toprol XL 25 mg tablet extended release 24 hr 25 mg PO DAILY Qty: 90 1RF ondansetron HCl 8 mg tablet 8 mg PO Q8H PRN (Reason: nausea and vomiting) Qty: 30 2RF hydrocodone-acetaminophen 5-325 mg tablet 1 tab PO BID PRN (Reason: pain) 30 Days Qty: 60 0RF hydrocodone-acetaminophen 5-325 mg tablet 1 tab PO Q6H PRN (Reason: pain) 30 Days Qty: 90 0RF prednisone 5 mg tablet See Rx Instructions PO .COMPLEX PRN (Reason: joint pain flare) Qty: 30 1RF Rx Instructions: take 1-2 tabs daily for 3-7 days prn joint pain flare orally PRN; prednisone 10 mg tablet 10 mg PO DAILY PRN (Reason: joint pain) Discharge Orders: Discharge ED (Routine); Ordered 01/21/24 Ordered By: Jose M Alonso Referrals: Valdo Galeas MD [Primary Care Provider] - 1 week Patient Instructions: Chest Pain (DC), Tachycardia (ED) Activity Restrictions/Additional Instructions: Your evaluation in ER did not show a cardiac cause of your chest pain. Your pain is felt to be noncardiac in nature. Urinalysis did not show any infection however did show some mild blood. Please follow-up with your family PAC physician for further evaluation and treatment as needed. Coding Level of Care Code ED Fishing Line Winding Machine Operator for Emmanuel Jacobo
[2024-01-21 01:41] LABS: Troponin(5th) Baseline < 6 ng/L (0-10)
[2024-01-21 01:42] LABS: Anion Gap 16.7 (5-19); Blood Urea Nitrogen 15 mg/dL (6-20); Calcium 9.5 mg/dL (8.5-10.5); Carbon Dioxide 26 mmol/L (22-29); Chloride 96 mmol/L (98-107); Creatinine Clr Calc Pharmacy 69.3472; Glomerular Filtration Rate 50.3 mL/min (90-130); Glucose 120 mg/dL (65-115); Osmolality Calculated 282 mOsm/kg (285-295); Potassium 3.7 mmol/L (3.5-5.1); Sodium 135 mmol/L (136-145)
--- NOTE | 2024-01-21 02:54 | ECG_ITS ---
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 Measurements Intervals [place] Rate: 119 P: 43 [place]: 145 QRS: 34 QRSD: 76 T: 31 QT: 314 QTc: 443 Interpretive Statements SINUS TACHYCARDIA ABNORMAL RHYTHM ECG Compared to ECG 01/21/2024 00:28:31 No significant changes Electronically Signed On 01-21-2024 8:18:25 CDT by Yehuda Golden M.D. [email or web address]/[id number]
[2024-01-21 03:39] LABS: Troponin 5 2HR Delta 0.00001 ABS# (0-10)
[2024-01-21 03:41] VITALS: BP 136/107; PULSE 122; O2SAT 99
[2024-01-21] MEDS: sodium chloride 0.9% 1,000 ML 999 ML IV (03:44)
[2024-01-21 04:00] VITALS: PULSE 116; O2SAT 97
[2024-01-21 04:30] VITALS: PULSE 113; O2SAT 98
[2024-01-21 05:00] VITALS: PULSE 113; O2SAT 97
[2024-01-21 05:32] LABS: Add Urine Microscopic? YES; Bilirubin Urine Neg (Negative); Blood Urine 3+ (Negative); Glucose Urine UA Norm (Normal); Ketones Urine Negative (Negative); Leukocyte Esterase Urine Negative (Negative); Nitrate Urine Negative (Negative); Protein Urine Trace (Negative); RBC Urine 0-4 /hpf (0-2); Urine Appearance Hazy (CLEAR); Urine Color Dark Yellow (Yellow); Urobilinogen Urine Neg (Negative); pH Urine 5 (5-7)
[2024-01-21 05:33] LABS: Amorphous Sediment Urine TRACE /hpf; Bacteria Urine 1+ /hpf; Fine Granular Casts Urine 0-4 /lpf; Mucus Urine TRACE /hpf
[2024-01-21 06:34] VITALS: BP 136/100; PULSE 115; RESP 16; O2SAT 97
== END 2024-01-21 06:42 | disposition home or self-care (01) ==
PROVIDERS: Emergency Provider Emergency Medicine; PCP Family Medicine
DX: R07.89 Other chest pain (principal); Z87.891 Personal history of nicotine dependence; I10 Essential (primary) hypertension
CPT/HCPCS: 71045; 80048; 81001; 84484; 85025; 93005; 96360; 99285; J7030

== ENCOUNTER 2024-02-22 07:49 | Outpatient (CLI) | payer BC, SELFPAY ==
--- NOTE | 2024-02-22 07:57 | MR_ITS ---
WS: [id number] MRI HEAD WITH CONTRAST WITH PITUITARY PROTOCOL TECHNIQUE: Sagittal T1, T2 axial, T2 axial FLAIR, axial susceptibility weighted imaging, axial diffus ion weighted images, and coronal T2 images were obtained. Pre and post-T1 axial and post T1 coronal i mages. ADC and FSPGR images. High-resolution pituitary imaging with dynamic pituitary protocol. CLINICAL INFORMATION: PITUITARY MICROADENOMA COMPARISON: CT head 04/01/2021. No prior MRI images or report. FINDINGS: No evidence of restricted diffusion to suggest acute ischemia. Ventricular system and basilar cistern s are patent. Normal burrell-white differentiation. No suspicious intracranial signal normalities. Reshma l posterior fossa. Normal vascular flow voids at the skull base. No extra-axial fluid collections. Pa ranasal sinuses and mastoid air cells are well aerated. Small retention cyst LEFT maxillary sinus. No hemosiderin on the susceptibility weighted images. Normal posterior nasopharynx. Pituitary infundibulum with slight deviation to the RIGHT. Normal optic chiasm. Cystic intrasellar le vasu with deviation of the infundibulum to the RIGHT. Compression of the pituitary tissue in the floo r of the sella. In cystic lesion nearly follows CSF on all sequences with incomplete nulling on the F LAIR imaging. No enhancement. Differential considerations include arachnoid cyst or cystic adenoma. In addition, slight tiny focus of hypoenhancement in the LEFT aspect of the pituitary may present a t iny microadenoma measuring 2 mm. Recommend correlation with pituitary function studies. No other suspicious findings. MR/MR pituitary wo/w con* [id number] IMPRESSION: 1. No evidence of restricted diffusion to suggest acute ischemia. 2. No suspicious intracranial signal abnormalities. 3. Suggestion of a cystic lesion in the sella with inferior compression of the pituitary tissue against the floor of the sella. This nearly follows CSF on al l sequences without enhancement. Rightward deviation of the pituitary infundibu lum. Differential considerations include arachnoid cyst and cystic adenoma. Thi s measures approximately 10 x 11 mm 4. Tiny 2 mm focus of hypoenhancement in the LEFT aspect of the pituitary may represent tiny microadenoma only seen on the dynamic imaging. Recommend correla tion with pituitary function studies. 5. No other suspicious findings.
[2024-02-22] MEDS: gadobenate dimeglumine 20 mL vial IV (09:00)
== END 2024-02-22 07:50 | disposition home or self-care (01) ==
PROVIDERS: PCP Family Medicine; Visit Provider Family Medicine
DX: D35.2 Benign neoplasm of pituitary gland (principal)
CPT/HCPCS: 70553; A9577

== ENCOUNTER 2024-02-22 07:52 | Outpatient (CLI) | payer BC, SELFPAY ==
[2024-02-22 09:44] LABS: Basophils # 0.1 10^3/uL (0.0-0.1); Basophils % 0.4 %; Eosinophils # 0.2 10^3/uL (0.0-0.8); Eosinophils % 1.5 %; Hematocrit 42.3 % (36-47); Lymphocytes # 1.8 10^3/uL (0.8-4.8); Lymphocytes % 15.4 %; Mean Corpuscular HGB Conc 32.9 g/dL (30-55); Mean Corpuscular Hemoglobin 28.4 pg (27-33); Mean Corpuscular Volume 86.3 fl (85-98); Mean Platelet Volume 10.7 fL (7.4-10.4); Monocytes # 0.8 10^3/uL (0.2-0.9); Monocytes % 7.1 %; Neutrophils # 8.83 10^3/uL (1.8-7.7); Neutrophils % 75.3 %; Nucleated Red Blood Cells % 0 %; Platelet Count 297 10^3/cmm (157-399); Red Cell Distribution Width 13.4 % (12.1-15.1); White Blood Count 11.72 10^3/uL (3.29-11.43)
[2024-02-22 10:09] LABS: Alanine Aminotransferase 8 U/L (0-33); Albumin Level 3.6 g/dL (3.5-5.2); Alkaline Phosphatase 100 U/L (35-105); Aspartate Amino Transferase 12 U/L (0-32); C Reactive Protein 13.1 mg/L (0.0-4.9); Globulin 3.1 g/dL (1.3-4.6); Glomerular Filtration Rate 62.1 mL/min (90-130); Total Bilirubin 0.4 mg/dL (0.15-1.2); Total Protein 6.7 g/dL (6.6-8.7)
[2024-02-22 10:18] LABS: Erythrocyte Sedimentation Rate 39 mm/hr (0-15)
[2024-02-22 10:23] LABS: 25 Hydroxy Vitamin D 10 ng/mL (30-100)
== END 2024-02-22 07:53 | disposition home or self-care (01) ==
LOC: LAB 07:52
PROVIDERS: Internal Medicine Rheumatology; PCP Family Medicine; Visit Provider Family Medicine
DX: Z79.899 Other long term (current) drug therapy (principal); M05.79 Rheumatoid arthritis with rheumatoid factor of multiple sites without organ or systems involvement
CPT/HCPCS: 36415; 80076; 82306; 82565; 85025; 85651; 86140

== ENCOUNTER 2024-05-27 07:30 | Oncology outpatient (recurring) (ONCR) | payer BC, SELFPAY ==
[2024-05-06 08:06] VITALS: BP 151/108; PULSE 91; RESP 18; TEMP 36.4; O2SAT 97
[2024-05-06] MEDS: sodium chloride 0.9% 500 ML 75 ML IV (08:23)
[2024-05-06] MEDS: acetaminophen 325 mg Tablet 650 MG PO (08:24)
[2024-05-06] MEDS: diphenhydrAMINE 50 mg/mL SDV 1mL 25 MG IVP (08:24)
[2024-05-06] MEDS: methylPREDNISolone sod succ 40 mg/mL INJ IVP (08:29)
[2024-05-06 09:00] VITALS: BP 148/87; PULSE 79; RESP 16; TEMP 36.3; O2SAT 95
[2024-05-06] MEDS: rituximab-abbs 1,000 MG in sodium chloride 0.9% 500 ML 60 MG IV (09:00)
[2024-05-06 09:30] VITALS: BP 123/85; PULSE 74; RESP 16; TEMP 35.6; O2SAT 96
[2024-05-06 10:00] VITALS: BP 133/87; PULSE 78; RESP 16; TEMP 35.6; O2SAT 96
[2024-05-06 10:30] VITALS: BP 144/90; PULSE 77; RESP 16; TEMP 36.1; O2SAT 95
[2024-05-06 12:48] VITALS: BP 159/118; PULSE 101; RESP 16; TEMP 36.3; O2SAT 97
--- NOTE | 2024-05-06 12:54 | PC.NURSE ---
patient reports pain from her RA and she is currently taking her prednisone which causes increased blood pressures. Patient denies any symptoms at this time and reports that her home BP meds have been taken.
[2024-05-20 08:02] VITALS: BP 161/92; PULSE 96; RESP 18; TEMP 37.6; O2SAT 97
[2024-05-20] MEDS: methylPREDNISolone sod succ 40 mg/mL INJ IVP (08:25)
[2024-05-20] MEDS: sodium chloride 0.9% 500 ML 75 ML IV (08:25)
[2024-05-20] MEDS: acetaminophen 325 mg Tablet 650 MG PO (08:25)
[2024-05-20] MEDS: diphenhydrAMINE 50 mg/mL SDV 1mL 25 MG IVP (08:30)
[2024-05-27 07:38] VITALS: BP 144/87; PULSE 111; RESP 18; TEMP 36.5; O2SAT 95
[2024-05-27] MEDS: sodium chloride 0.9% 250 ML 75 ML IV (09:42)
[2024-05-27] MEDS: diphenhydrAMINE 50 mg/mL SDV 1mL 25 MG IVP (09:51)
[2024-05-27] MEDS: acetaminophen 325 mg Tablet 650 MG PO (09:52)
[2024-05-27] MEDS: methylPREDNISolone sod succ 40 mg/mL INJ IVP (09:56)
[2024-05-27 10:37] VITALS: BP 128/85; PULSE 85; RESP 16; TEMP 36.6; O2SAT 98
[2024-05-27] MEDS: rituximab-abbs 1,000 MG in sodium chloride 0.9% 500 ML 70 MG IV (10:37)
[2024-05-27 11:07] VITALS: BP 110/76; PULSE 88; RESP 16; TEMP 36.8; O2SAT 98
[2024-05-27 11:37] VITALS: BP 139/75; PULSE 91; RESP 16; TEMP 36.1; O2SAT 94
[2024-05-27 12:12] VITALS: BP 118/79; PULSE 85; RESP 16; TEMP 36.5; O2SAT 96
[2024-05-27 13:26] LABS: Basophils % 0.2 %; Eosinophils % 0.1 %; Hematocrit 43.7 % (36-47); Lymphocytes # 1.1 10^3/uL (0.8-4.8); Lymphocytes % 6.1 %; Mean Corpuscular HGB Conc 33.4 g/dL (30-55); Mean Corpuscular Volume 83.7 fl (85-98); Mean Platelet Volume 9.7 fL (7.4-10.4); Monocytes # 0.3 10^3/uL (0.2-0.9); Monocytes % 1.5 %; Neutrophils # 17.05 10^3/uL (1.8-7.7); Neutrophils % 91.6 %; Nucleated Red Blood Cells % 0 %; Platelet Count 357 10^3/cmm (157-399); Red Blood Count 5.22 10^6/uL (3.85-5.65); Red Cell Distribution Width 14.6 % (12.1-15.1); White Blood Count 18.61 10^3/uL (3.29-11.43)
[2024-05-27 13:29] LABS: Erythrocyte Sedimentation Rate 58 mm/hr (0-15)
[2024-05-27 13:43] LABS: Alanine Aminotransferase 8 U/L (0-33); Albumin Level 3.8 g/dL (3.5-5.2); Alkaline Phosphatase 103 U/L (35-105); Aspartate Amino Transferase 9 U/L (0-32); C Reactive Protein 16.3 mg/L (0.0-4.9); Creatinine Clr Calc Pharmacy 109.9415; Globulin 2.9 g/dL (1.3-4.6); Glomerular Filtration Rate 70.1 mL/min (90-130); Total Bilirubin 0.3 mg/dL (0.15-1.2); Total Protein 6.7 g/dL (6.6-8.7)
[2024-05-27 13:54] VITALS: BP 169/90; PULSE 101; RESP 16; TEMP 36.3; O2SAT 97
[2024-05-27 13:59] LABS: 25 Hydroxy Vitamin D 34 ng/mL (30-100)
== END 2024-06-01 23:59 | disposition home or self-care (01) ==
PROVIDERS: PCP Family Medicine; Visit Provider Internal Medicine Rheumatology
DX: Z53.9 Procedure and treatment not carried out, unspecified reason (principal); M05.79 Rheumatoid arthritis with rheumatoid factor of multiple sites without organ or systems involvement; Z79.899 Other long term (current) drug therapy
CPT/HCPCS: 80076; 82306; 82565; 85025; 85651; 86140; 96375; 96413; 96415; J1200; J2919; J7040; J7050; Q5115

== ENCOUNTER → 2024-10-30 15:29 | Outpatient (BNVA) | payer OTHER, SELFPAY | PROVIDERS: PCP Family Medicine; Visit Provider Internal Medicine Rheumatology | DX: M05.79 Rheumatoid arthritis with rheumatoid factor of multiple sites without organ or systems involvement (principal); Z79.899 Other long term (current) drug therapy | CPT/HCPCS: 36415; 80076; 82306; 82565; 85025; 85651; 86140 ==

== ENCOUNTER → 2024-11-04 12:09 | Outpatient (BNVA) | payer OTHER, SELFPAY | PROVIDERS: PCP Family Medicine; Referring Provider Family Medicine; Visit Provider Internal Medicine | DX: D35.2 Benign neoplasm of pituitary gland (principal); G93.0 Cerebral cysts; M06.9 Rheumatoid arthritis, unspecified; R51.9 Headache, unspecified; H53.9 Unspecified visual disturbance | CPT/HCPCS: 82670; 83001; 83002; 84305; 84439; 84443 ==

== ENCOUNTER 2024-12-03 07:50 | Oncology outpatient (recurring) (ONCR) | payer OTHER, SELFPAY ==
[2024-12-03] MEDS: sodium chloride 0.9% 250 ML 75 ML IV (08:35)
[2024-12-03] MEDS: methylPREDNISolone sod succ 40 mg/mL INJ IVP (08:36)
[2024-12-03] MEDS: diphenhydrAMINE 50 mg/mL SDV 1mL 25 MG IVP (08:41)
[2024-12-03] MEDS: acetaminophen 325 mg Tablet 650 MG PO (08:41)
[2024-12-03] MEDS: rituximab-abbs 1,000 MG in sodium chloride 0.9% 500 ML 65 MG IV (09:11)
[2024-12-03 09:17] VITALS: BP 136/85; PULSE 105; TEMP 36.8; O2SAT 99
[2024-12-03 09:45] VITALS: BP 113/76; PULSE 94; TEMP 36.8; O2SAT 95
[2024-12-03 10:15] VITALS: BP 100/68; PULSE 97; TEMP 36.3; O2SAT 95
[2024-12-03 10:45] VITALS: BP 111/75; PULSE 92; O2SAT 94
[2024-12-03 11:25] VITALS: BP 126/88; PULSE 95
[2024-12-03 13:57] VITALS: BP 143/95; PULSE 103; TEMP 35.8; O2SAT 95
== END 2024-12-03 23:59 | disposition home or self-care (01) ==
PROVIDERS: PCP Family Medicine; Visit Provider Internal Medicine Rheumatology
DX: M05.89 Other rheumatoid arthritis with rheumatoid factor of multiple sites (principal); Z79.899 Other long term (current) drug therapy
CPT/HCPCS: 96375; 96413; 96415; J1200; J2919; J7040; J7050; Q5115

== ENCOUNTER 2024-12-16 07:52 | Oncology outpatient (recurring) (ONCR) | payer OTHER, SELFPAY ==
[2024-12-16 08:03] VITALS: BP 157/112; PULSE 112; RESP 16; TEMP 36.8; O2SAT 97
[2024-12-16] MEDS: sodium chloride 0.9% 250 ML 75 ML IV (08:41)
[2024-12-16] MEDS: acetaminophen 325 mg Tablet 650 MG PO (08:41)
[2024-12-16] MEDS: diphenhydrAMINE 50 mg/mL SDV 1mL 25 MG IVP (08:46)
[2024-12-16] MEDS: methylPREDNISolone sod succ 40 mg/mL INJ IVP (08:49)
[2024-12-16] MEDS: rituximab-abbs 1,000 MG in sodium chloride 0.9% 500 ML 200 MG IV (09:42)
[2024-12-16 09:45] VITALS: BP 135/93; PULSE 75; RESP 16; TEMP 36.3; O2SAT 98
[2024-12-16 10:15] VITALS: BP 119/83; PULSE 75; RESP 16; TEMP 36.7; O2SAT 96
[2024-12-16 10:45] VITALS: BP 133/86; PULSE 90; RESP 16; TEMP 36.3; O2SAT 96
[2024-12-16 11:15] VITALS: BP 142/82; PULSE 83; RESP 16; TEMP 36.1; O2SAT 97
[2024-12-16 13:38] VITALS: BP 157/82; PULSE 100; TEMP 36.6; O2SAT 98
== END 2024-12-30 23:59 | disposition home or self-care (01) ==
PROVIDERS: PCP Family Medicine; Visit Provider Internal Medicine Rheumatology
DX: M05.79 Rheumatoid arthritis with rheumatoid factor of multiple sites without organ or systems involvement (principal); Z79.899 Other long term (current) drug therapy
CPT/HCPCS: 96375; 96413; 96415; J1200; J2919; J7040; J7050; J9999; Q5115

== ENCOUNTER 2025-04-21 07:53 | Oncology outpatient (recurring) (ONCR) | payer OTHER, SELFPAY ==
[2025-04-21 08:05] VITALS: PULSE 97; RESP 18; TEMP 36.8; O2SAT 97
[2025-04-21 08:26] LABS: Hematocrit 45.3 % (36-47); Hemoglobin 14.80 g/dL (11.27-16.99); Mean Corpuscular HGB Conc 32.7 g/dL (30-55); Mean Corpuscular Hemoglobin 26.9 pg (27-33); Mean Corpuscular Volume 82.4 fl (85-98); Nucleated Red Blood Cells % 0 %; Platelet Count 365 10^3/cmm (157-399); Red Blood Count 5.50 10^6/uL (3.85-5.65); White Blood Count 14.87 10^3/uL (3.29-11.43)
[2025-04-21] MEDS: diphenhydrAMINE 50 mg/mL SDV 1mL 25 MG IVP (08:30)
[2025-04-21] MEDS: methylPREDNISolone sod succ 40 mg/mL INJ IVP (08:34)
[2025-04-21 08:44] LABS: Alanine Aminotransferase 10 U/L (0-33); Albumin Level 3.8 g/dL (3.5-5.2); Alkaline Phosphatase 116 U/L (35-105); Creatinine Clr Calc Pharmacy 131.6659; Globulin 3.1 g/dL (1.3-4.6); Total Protein 6.9 g/dL (6.6-8.7)
[2025-04-21 08:55] VITALS: BP 142/95; PULSE 89; RESP 18; TEMP 36.9; O2SAT 95
[2025-04-21 09:24] LABS: Aspartate Amino Transferase 16 U/L (0-32)
[2025-04-21 09:26] VITALS: BP 150/97; PULSE 92; RESP 18; TEMP 36.7; O2SAT 97
[2025-04-21 09:56] VITALS: BP 141/86; PULSE 87; RESP 18; TEMP 36.8; O2SAT 95
[2025-04-21 10:30] VITALS: BP 121/84; PULSE 84; RESP 18; TEMP 36.3; O2SAT 98
[2025-04-21 12:20] VITALS: BP 183/86; PULSE 102; RESP 18; TEMP 36.7; O2SAT 98
== END 2025-05-01 23:59 | disposition home or self-care (01) ==
PROVIDERS: PCP Family Medicine; Visit Provider Internal Medicine Rheumatology
DX: M05.79 Rheumatoid arthritis with rheumatoid factor of multiple sites without organ or systems involvement (principal); Z79.899 Other long term (current) drug therapy
CPT/HCPCS: 80076; 82565; 85025; 85651; 86140; 96375; 96413; 96415; J1200; J2919; J7040; J9999; Q5115

== ENCOUNTER 2025-05-07 07:48 | Oncology outpatient (recurring) (ONCR) | payer OTHER, SELFPAY ==
[2025-05-07] VITALS (8 sets, daily range): BP systolic 115–164; BP diastolic 67–100; PULSE 74–92; RESP 16–18; TEMP 35.6–36.7; O2SAT 95–98
[2025-05-07] MEDS: diphenhydrAMINE 50 mg/mL SDV 1mL 25 MG IVP (09:03)
[2025-05-07] MEDS: methylPREDNISolone sod succ 40 mg/mL INJ IVP (09:10)
== END 2025-06-01 23:59 | disposition home or self-care (01) ==
PROVIDERS: PCP Family Medicine; Visit Provider Internal Medicine Rheumatology
DX: M05.89 Other rheumatoid arthritis with rheumatoid factor of multiple sites (principal); Z79.899 Other long term (current) drug therapy
CPT/HCPCS: 96375; 96413; 96415; J1200; J2919; J7040; J7050; J9999; Q5115